=== PATIENT | female | born 1930 | race Caucasian/White ===

== ENCOUNTER 2016-08-13 02:16 | Inpatient (IN) | payer MEDICARE ==
[2016-08-13 03:01] LABS: Basophils % (A) 0 %; CH 30.4; CHCM 32.1; Eosinophils % (A) 0 %; HCT 43.5 % (34.0-46.0); HDW 2.53; HGB 13.7 gm/dL (11.4-16.0); Luc # (Auto) 0.08; Luc % (Auto) 1; Lymphocytes # (A) 1.1 k/uL (1.0-4.8); Lymphocytes % (A) 12 %; MCHC 31.4 g/dL (31.0-37.0); MCV 95.4 fL (80.0-100.0); Mean Platelet Volume 8.9; Monocytes # (A) 0.4 k/uL (0-1.0); Monocytes % (A) 4 %; Neutrophils # (A) 7.2 k/uL (1.3-7.7); Neutrophils % (A) 82 %; RBC 4.56 m/uL (3.80-5.40); WBC 8.8 k/uL (3.8-10.6); WBC (Perox) 8.68
[2016-08-13] MEDS ORDERED: DILTIAZEM 125 MG in SODIUM CHLORIDE 0.9% 100 ML IV ONE (03:03)
[2016-08-13] MEDS ORDERED: DILTIAZEM 5 MG/ML 5 ML VIAL IVP STA ×2 (03:03→04:34)
[2016-08-13] MEDS ORDERED: ONDANSETRON 4 MG/2 ML VIAL IVP STA (03:05)
[2016-08-13 03:18] LABS: Calcium 10.2 mg/dL (8.4-10.2); Magnesium 1.5 mg/dL (1.6-2.3); Potassium 3.5 mmol/L (3.5-5.1); Total Bilirubin 1.1 mg/dL (0.2-1.3); Total Protein 7.2 g/dL (6.3-8.2)
[2016-08-13 03:25] LABS: INR 1.4 (<1.1); Partial Thromboplastin Time 23.5 sec (22.0-30.0); Prothrombin Time 13.5 sec (9.0-12.0)
[2016-08-13 03:33] LABS: Creatine Kinase MB 1.7 ng/mL (0.0-2.4)
[2016-08-13 03:34] LABS: Troponin I 0.079 ng/mL (0.000-0.034)
--- NOTE | 2016-08-13 03:42 | XR ---
EXAMINATION TYPE: XR chest 2V DATE OF EXAM: 08/13/2016 3:11 AM COMPARISON: None. HISTORY: Dysrhythmia, irregular heart rate TECHNIQUE: Frontal and lateral views of the chest are obtained. FINDINGS: There is mild pulmonary vascular congestion. Mild chronic interstitial lung changes are suggested evelia aterally. No definite focal pneumonia pneumothorax or pleural effusion is noted. There is mild cardio megaly and atherosclerotic calcification in the aortic arch and prosthetic cardiac valve in place. Mild degenerative changes and a dextroscoliosis is present in the thoracic spine with mild old wedge compression deformities. There is possibility of left mastectomy. IMPRESSION: 1. Chronic lung changes. 2. Mild pulmonary vascular congestion. 3. No focal pneumonia.
--- NOTE | 2016-08-13 03:53 | ED ---
Arrhythmia/Palpitations HPI - General Chief Complaint: Arrhythmia/Palpitations Stated Complaint: Rapid heart rate Time Seen by Provider: 08/13/16 02:46 Source: patient, RN notes reviewed Mode of arrival: wheelchair Limitations: no limitations - History of Present Illness Initial Comments: This patient is an 86-year-old woman who presents to be evaluated for a racing heartbeat, as well as nausea and vomiting. The patient states that she recently changed from taking oral clonidine to using clonidine patch. Following day she started to not feel well. She states that this was on Saturday, and she has a difficult time quantifying exactly what she was experiencing on Saturday. Starting this morning, she noted that her heart was racing, she was feeling generalized weakness and fatigue, and then tonight she was feeling very short of breath and also having nausea and vomiting. MD Complaint: rapid heart beat -: hour(s) Context: occurred during rest, change in medication Associated Symptoms: shortness of breath, nausea/vomiting, anxiety - Related Data Home Medications Medication Instructions Recorded Confirmed Apixaban [Eliquis] 2.5 mg PO BID 08/13/16 08/13/16 Aspirin 81 mg PO DAILY 08/13/16 08/13/16 Atorvastatin Calcium [Lipitor] 20 mg PO DAILY 08/13/16 08/13/16 Calcium Carbonate [Calcium] 600 mg PO BID 08/13/16 08/13/16 Fenofibrate 160 mg PO DAILY 08/13/16 08/13/16 Gabapentin [Neurontin] 200 mg PO BID 08/13/16 08/13/16 Losartan/Hydrochlorothiazide 1 each PO DAILY 08/13/16 08/13/16 [Hyzaar 100-25 Tablet] Metoprolol Succinate [Toprol XL] 25 mg PO DAILY 08/13/16 08/13/16 Montelukast [Singulair] 10 mg PO DAILY 08/13/16 08/13/16 Multivitamins, Thera [Multivitamin] 1 tab PO DAILY 08/13/16 08/13/16 Repaglinide [Prandin] 1 mg PO AC-BID 08/13/16 08/13/16 Ubidecarenone [Co Q-10] 100 mg PO DAILY 08/13/16 08/13/16 cloNIDine 0.3 MG/24HR PATCH 1 each TRANSDERM Q7D 08/13/16 08/13/16 [Catapres-Tts 0.3MG Patch] metFORMIN HCL [Glucophage Xr] 500 mg PO DAILY 08/13/16 08/13/16 Allergies Allergy/AdvReac Type Severity Reaction Status Date / Time tetracycline Allergy Rapid Verified 08/13/16 02:57 Heart Rate Review of Systems ROS Statement: Those systems with pertinent positive or pertinent negative responses have been documented in the HPI. ROS Other: All systems not noted in ROS Statement are negative. Constitutional: Reports: weakness (Generalized). Denies: fever, chills Respiratory: Reports: dyspnea. Denies: cough, wheezes, hemoptysis Cardiovascular: Reports: chest pain, palpitations, dyspnea on exertion. Denies : orthopnea, edema, syncope Gastrointestinal: Reports: nausea, vomiting. Denies: abdominal pain, diarrhea, constipation Genitourinary: Denies: dysuria, hematuria Musculoskeletal: Denies: back pain Skin: Denies: rash Neurological: Denies: headache, weakness, numbness Past Medical History Past Medical History: Atrial Fibrillation, Cancer, Diabetes Mellitus, Hypertension, Mitral Valve Prolapse (MVP) History of Any Multi-Drug Resistant Organisms: None Reported Past Surgical History: Section, Cholecystectomy, Hysterectomy Additional Past Surgical History / Comment(s): Left breast removal 1985 Past Psychological History: No Psychological Hx Reported Smoking Status: Former smoker Past Alcohol Use History: Rare Past Drug Use History: None Reported General Exam Limitations: no limitations General appearance: alert, in distress Head exam: Present: atraumatic, normocephalic Eye exam: Present: normal appearance. Absent: scleral icterus, conjunctival injection ENT exam: Present: mucous membranes dry Neck exam: Present: normal inspection Respiratory exam: Present: normal lung sounds bilaterally, respiratory distress (Mild tachypnea). Absent: wheezes, rales, rhonchi, stridor Cardiovascular Exam: Present: tachycardia, irregular rhythm, systolic murmur ( Grade 1/6 systolic ejection murmur). Absent: diastolic murmur, rubs, gallop GI/Abdominal exam: Present: soft. Absent: distended, tenderness, guarding, rebound Extremities exam: Present: normal inspection, normal capillary refill. Absent: pedal edema, calf tenderness Back exam: Present: normal inspection. Absent: CVA tenderness (R), CVA tenderness (L) Neurological exam: Present: alert Skin exam: Present: warm, dry, intact, normal color. Absent: rash, cyanosis, diaphoretic, erythema, petechiae, pallor, mottled Course Vital Signs 08/13/16 08/13/16 08/13/16 02:22 02:54 03:23 Temperature 96.7 F L 97.8 F Pulse Rate 135 H 108 H Pulse Rate [ 135 H Lining Stitcher ] Respiratory 22 20 Rate Blood Pressure 139/104 165/86 O2 Sat by Pulse 98 97 Oximetry 08/13/16 08/13/16 04:35 05:26 Temperature Pulse Rate 117 H 102 H Pulse Rate [ L[place] Stitcher ] Respiratory 22 18 Rate Blood Pressure 148/91 130/82 O2 Sat by Pulse 97 98 Oximetry EKG Findings - EKG Results: EKG: interpreted by ERMD EKG shows: atrial fibrillation (Rate approximately 145 bpm) - Blocks, [place], Hypertrophy, ST Abn: Chamber hypertrophy or enlargement: only voltage criteria for left ventricular hypertrophy Repolarization changes or abnormalities: ST suggestive of injury (ST depressions in V4 to V6 concerning for subendocardial injury in the lateral leads.) Medical Decision Making - Medical Decision Making Patient is an 86-year-old woman presenting with atrial fibrillation and rapid ventricular rate. Patient started on Cardizem bolus and drip. Patient was reevaluated and number of times and the heart rate does continue to improve. The patient's nausea and vomiting has resolved. She is feeling much better following medications. Patient be admitted for serial cardiac enzymes and cardiology consultation. - Lab Data Result diagrams: 08/13/16 02:48 08/13/16 02:48 Lab Results 08/13/16 08/13/16 08/13/16 Range/Units 02:48 02:48 02:48 WBC 8.8 (3.8-10.6) k/uL RBC 4.56 (3.80-5.40) m/uL Hgb 13.7 (11.4-16.0) gm/dL Hct 43.5 (34.0-46.0) % MCV 95.4 (80.0-100.0) fL MCH 30.0 (25.0-35.0) pg MCHC 31.4 (31.0-37.0) g/dL RDW 14.0 (11.5-15.5) % Plt Count 199 (150-450) k/uL Neutrophils % 82 % Lymphocytes % 12 % Monocytes % 4 % Eosinophils % 0 % Basophils % 0 % Neutrophils # 7.2 (1.3-7.7) k/uL Lymphocytes # 1.1 (1.0-4.8) k/uL Monocytes # 0.4 (0-1.0) k/uL Eosinophils # 0.0 (0-0.7) k/uL Basophils # 0.0 (0-0.2) k/uL PT (9.0-12.0) sec INR (<1.1) APTT (22.0-30.0) sec D-Dimer (<0.60) mg/L FEU Sodium 141 (137-145) mmol/L Potassium 3.5 (3.5-5.1) mmol/L Chloride 99 (98-107) mmol/L Carbon Dioxide 20 L (22-30) mmol/L Anion Gap 22 mmol/L BUN 26 H (7-17) mg/dL Creatinine 1.10 H (0.52-1.04) mg/dL Est GFR (MDRD) Af Amer 57 (>60 ml/min/1.73 sqM) Est GFR (MDRD) Non-Af 47 (>60 ml/min/1.73 sqM) Glucose 302 H (74-99) mg/dL Calcium 10.2 (8.4-10.2) mg/dL Magnesium 1.5 L (1.6-2.3) mg/dL Total Bilirubin 1.1 (0.2-1.3) mg/dL AST 71 H (14-36) U/L ALT 46 (9-52) U/L Alkaline Phosphatase 43 (38-126) U/L Total Creatine Kinase 79 (30-135) U/L CK-MB (CK-2) 1.7 (0.0-2.4) ng/mL CK-MB (CK-2) Rel Index 2.2 Troponin I 0.079 H* (0.000-0.034) ng/mL Total Protein 7.2 (6.3-8.2) g/dL Albumin 4.2 (3.5-5.0) g/dL 08/13/16 Range/Units 02:48 WBC (3.8-10.6) k/uL RBC (3.80-5.40) m/uL Hgb (11.4-16.0) gm/dL Hct (34.0-46.0) % MCV (80.0-100.0) fL MCH (25.0-35.0) pg MCHC (31.0-37.0) g/dL RDW (11.5-15.5) % Plt Count (150-450) k/uL Neutrophils % % Lymphocytes % % Monocytes % % Eosinophils % % Basophils % % Neutrophils # (1.3-7.7) k/uL Lymphocytes # (1.0-4.8) k/uL Monocytes # (0-1.0) k/uL Eosinophils # (0-0.7) k/uL Basophils # (0-0.2) k/uL PT 13.5 H (9.0-12.0) sec INR 1.4 (<1.1) APTT 23.5 (22.0-30.0) sec D-Dimer 0.23 (<0.60) mg/L FEU Sodium (137-145) mmol/L Potassium (3.5-5.1) mmol/L Chloride (98-107) mmol/L Carbon Dioxide (22-30) mmol/L Anion Gap mmol/L BUN (7-17) mg/dL Creatinine (0.52-1.04) mg/dL Est GFR (MDRD) Af Amer (>60 ml/min/1.73 sqM) Est GFR (MDRD) Non-Af (>60 ml/min/1.73 sqM) Glucose (74-99) mg/dL Calcium (8.4-10.2) mg/dL Magnesium (1.6-2.3) mg/dL Total Bilirubin (0.2-1.3) mg/dL AST (14-36) U/L ALT (9-52) U/L Alkaline Phosphatase (38-126) U/L Total Creatine Kinase (30-135) U/L CK-MB (CK-2) (0.0-2.4) ng/mL CK-MB (CK-2) Rel Index Troponin I (0.000-0.034) ng/mL Total Protein (6.3-8.2) g/dL Albumin (3.5-5.0) g/dL Critical Care Time Critical Care Time: Yes (40 minutes.) Disposition Clinical Impression: Atrial fibrillation, Hyperglycemia, Hypomagnesemia, Elevated troponin Disposition: ADMITTED IP TO THIS HOSP Condition: Fair
[2016-08-13] MEDS ORDERED: INSULIN REGULAR 100 UNIT/ML VIAL SQ STA (05:11)
[2016-08-13] MEDS ORDERED: ENOXAPARIN 40 MG/0.4 ML SYRINGE SQ STA (05:12)
[2016-08-13] MEDS ORDERED: NITROGLYCERIN SL TABS 0.4 MG TAB SUBLINGUAL PRN (05:12)
[2016-08-13] MEDS ORDERED: MAGNESIUM SULFATE-D5W PMX 1 GM in DEXTROSE/WATER 1 100ML.BAG IVPB ONE (05:17)
[2016-08-13 06:46] LABS: Glucose,Whole Blood 279 mg/dL (75-99)
[2016-08-13] MEDS ORDERED: METOPROLOL SUCCINATE (ER) 25 MG TAB.ER.24H PO SCH (09:00)
[2016-08-13] MEDS: GABAPENTIN 100 MG CAP PO SCH ×2 (09:00→21:39)
[2016-08-13] MEDS: APIXABAN 2.5 MG TABLET PO SCH ×2 (09:01→21:40)
[2016-08-13] MEDS: FENOFIBRATE 160 MG TAB PO SCH (09:01)
[2016-08-13 09:03] LABS: Creatine Kinase MB 1.8 ng/mL (0.0-2.4)
[2016-08-13] MEDS: MONTELUKAST 10 MG TAB PO SCH (09:03)
[2016-08-13 09:04] LABS: Troponin I 0.102 ng/mL (0.000-0.034)
[2016-08-13] MEDS: metFORMIN 500 MG TAB PO SCH ×2 (09:45→18:13)
[2016-08-13] MEDS: REPAGLINIDE 1 MG TAB PO SCH ×2 (09:45→18:14)
[2016-08-13] MEDS: CALCIUM CARBONATE 500 MG CHEWABLE PO SCH ×2 (09:45→21:39)
[2016-08-13 09:57] LABS: Glucose,Whole Blood 269 mg/dL (75-99)
[2016-08-13] MEDS: LOSARTAN-HCTZ 50-12.5 MG 1 EACH TAB PO SCH (10:01)
[2016-08-13] MEDS: INSULIN LISPRO (humaLOG) 300 UNIT/3 ML VIAL SQ SCH ×4 (10:03→21:38)
[2016-08-13] MEDS ORDERED: METOPROLOL TARTRATE 25 MG TAB PO SCH (12:30)
[2016-08-13 12:53] LABS: Glucose,Whole Blood 185 mg/dL (75-99)
[2016-08-13] MEDS: LEVOTHYROXINE 100 MCG TAB PO SCH (14:14)
[2016-08-13] MEDS: MAGNESIUM OXIDE 400 MG TAB PO SCH (14:14)
[2016-08-13] MEDS: ATORVASTATIN 20 MG TAB PO SCH (14:14)
[2016-08-13] MEDS: METOPROLOL TARTRATE 50 MG TAB PO SCH ×2 (14:14→21:39)
[2016-08-13] MEDS: MULTIVITAMINS, THERA 1 EACH TAB PO SCH (14:14)
--- NOTE | 2016-08-13 14:48 | CONS ---
DATE OF CONSULTATION: This is an 86-year-old female who switch from oral clonidine 0.3 mg 3 times a day to the TTS-3 patch and has not been able to sleep well. She has been experiencing palpitations. When she came into the emergency room, she also had a dull sensation of heaviness in her chest. When she came to the emergency room, she was found to be in atrial fibrillation with RVR. She has known atrial fibrillation and she has not been able to tolerate amiodarone in the past. Her first 12-lead ECG showed atrial fibrillation with a heart rate of 145 beats a minute with ST depressions in the lateral precordial leads. The following ECG at 160 beats per minute also shows ST depressions in the lateral precordial leads. She has prominent atrial fibrillation. Apparently was rate controlled per Dr. Espinoza's note from June 2016. Her medication list includes aspirin, Catapres patch TTS3, Coenzyme Q10, Eliquis 2.5 mg twice daily fenofibrate, Hyzaar 100-25 mg p.o. daily, Lipitor 20 mg daily, metformin, metoprolol succinate ER 25 mg daily, Singulair, Synthroid. REVIEW OF SYSTEMS: No fever, chills, rigors. No cough or expectoration. No nausea, vomiting, or diarrhea. No hematuria or dysuria. No strokes or seizures. No skin lesions or musculoskeletal complaints. Allergies to TETRACYCLINE and intolerance to AMIODARONE. AMIODARONE has been discontinued. On examination, her resting heart rate is about 100 beats a minute. Blood pressure is 151/72 mmHg, she is afebrile. Head and neck examination is normal. Heart sounds are irregular, but normal. No murmurs or gallops. Breath sounds are normal. No rhonchi. No crackles. Abdomen is soft, nontender. Extremities are warm. No edema Labs are reviewed. White count is 8.8. Hemoglobin is 43.5. Chemistry was reviewed. Sodium is normal. Potassium 3.5, BUN is 26, creatinine is 1.1. GFR is 47. Glucose is elevated. She is diabetic, troponin 0.079 and 0.1. She had a stress test in 2014 which was normal. IMPRESSION: 1. An 86-year-old female presenting with atrial fibrillation with rapid ventricular rate. Apparently she has no atrial fibrillation. There is a change from oral to transdural Catapres. 2. Diabetes adult-onset on metformin, hypertension, dyslipidemia. Blood pressure is elevated. Abnormal cardiac enzymes with borderline abnormal troponins with ST depression during atrial fibrillation, likely related to demand ischemia. SUGGEST: 1. Rate controlled with metoprolol. She is on 100 mg twice daily of metoprolol. 2. Continue antihypertensive therapy. She on clonidine at this time and she has been intolerant of AMIODARONE in the past. I would suggest continuing anticoagulation with apixaban 2.5 mg twice daily, continuing IV Cardizem for now but discontinue it once the heart rates are better controlled on the higher dose of metoprolol. She takes a small dose at home of 25 mg daily, succinate, she has been prescribed 100 mg twice daily p.o. I will also check her TSH level. 3. Plan is rate control of atrial fibrillation. Continue anticoagulation and blood pressure control and checking TSH.
[2016-08-13 18:00] LABS: Creatine Kinase MB 1.4 ng/mL (0.0-2.4)
[2016-08-13 18:04] LABS: Troponin I 0.123 ng/mL (0.000-0.034)
[2016-08-13] MEDS: DILTIAZEM 125 MG in SODIUM CHLORIDE 0.9% 100 ML IV SCH (18:11)
[2016-08-13 18:12] LABS: Glucose,Whole Blood 172 mg/dL (75-99)
--- NOTE | 2016-08-13 18:14 | HP ---
DATE OF ADMISSION: 08/13/2016 PRESENTING COMPLAINT: Heart racing. History of presenting complaint: A very pleasant 86-year-old Patient of Dr. Marquez. The patient's chronic stable conditions include diabetes, hypertension, hypothyroid, mitral valve prolapse, the patient also has got peripheral neuropathy. 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 The following day the patient started having some nausea, felt dizzy, heart started racing. Found to be in A. fib with rapid ventricular rate, put on IV Cardizem in the ER, the patient does not remember being in atrial fibrillation in the past. PAST MEDICAL HISTORY: Also developed some chest discomfort. Patient's at the bedside. No prior cardiac history she states. REVIEW OF SYSTEMS: CONSTITUTIONAL: Tired. HEENT: Decreased hearing. RESPIRATORY: Slight short of breath. CARDIOVASCULAR: As above. GASTROINTESTINAL: None. GENITOURINARY: None. MUSCULOSKELETAL: None. Dermatological: None. HEMATOLOGICAL: None. LYMPHATIC: None. PSYCHIATRY: ( ). NEUROLOGICAL: Some numbness and tingling in the feet. Past medical history, diabetes mellitus type 2, hypertension, mitral prolapse, hypothyroid. PAST SURGICAL HISTORY: , cholecystectomy, hysterectomy, left breast removal 1985. SOCIAL HISTORY: Does not smoke. , homemaker. FAMILY HISTORY: Reviewed; noncontributory to presentation. HOME MEDICATIONS: 1. Glucophage XL 500 mg p.o. daily. 2. Catapres 0.2 mg started on Saturday. 3. CoQ10 100 mg p.o. daily. 4. Prandin 1 mg p.o. b.i.d. 5. Multivitamin 1 tablet p.o. daily. 6. Singulair 10 mg p.o. daily. 7. Toprol-XL 25 mg p.o. daily. 8. Hyzaar 100/25 1 tablets p.o. daily. 9. Synthroid 100 mcg p.o. daily. 10. Neurontin 200 mg p.o. b.i.d. 11. TriCor 160 mg p.o. daily. 12. Calcium 600 mg p.o. b.i.d. 13. Lipitor 20 mg p.o. daily. 14. Aspirin 81 mg p.o. daily. 15. Eliquis 2.5 p.o. b.i.d. ALLERGIES TO TETRACYCLINE. On examination vital signs on presentation: Temperature 96.7, pulse 135, respirations 22, blood pressure 139/104, pulse ox 98% on room air. GENERAL APPEARANCE: Average build, lying in bed, not in distress. EYES: Pupils equal. Conjunctivae normal. HEENT: External appearance of nose and ears normal. Oral cavity normal. NECK: JVD not raised. Mass not palpable. RESPIRATORY: Effort increased. LUNGS: Slightly decreased breath sounds. CARDIOVASCULAR: Heart sounds irregular. No edema. ABDOMEN: Soft, nontender. Liver and spleen is not palpable. LYMPHATIC: No lymph nodes palpable in the neck and axilla. PSYCHIATRY: Alert and oriented x3. Mood and affect normal. NEUROLOGICAL: Pupils equal. Cranial nerves grossly intact. Power and sensation grossly intact. MUSCULOSKELETAL: Evidence of osteoarthritis of multiple joints including especially the hands and knees. INVESTIGATIONS: White count 8.8, hemoglobin 13.7. Potassium 3.5. BUN 26, creatinine 1.10, glucose 302, 279, troponin 0.079, 0.102, EKG atrial fibrillation, ST segment some depression in the inferolateral leads, premature ventricular contractions. ASSESSMENT: 1. New onset atrial fibrillation with rapid ventricular rate with some ischemic changes and the troponin leak this could be cardiac ischemia tachycardia, related to underlying cardiac ischemia been unmasked, patient definitely has multiple cardiac risk factors. 2. Diabetes mellitus type 2, chronically on oral hypoglycemic, uncontrolled. 3. Essential hypertension, uncontrolled. 4. Mitral valve prolapse. 5. Hypoparathyroidism. 6. 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 PLAN: The patient is started on IV Cardizem in the ER. Catapres patch has been taken off. We will increase patient's Lopressor to 100 mg twice a day starting now. Sugars are under control hence we will increase patient's Glucophage to 1000 mg twice a day. Care was discussed in detail with the patient and . Cardiology has been consulted for ( ). Patient is on Eliquis, it is possible that the patient chronically has atrial fibrillation. We will also check patient's thyroid levels in the morning. Copy to Dr. Marquez.
[2016-08-13 21:37] LABS: Glucose,Whole Blood 149 mg/dL (75-99)
[2016-08-14] MEDS: INSULIN LISPRO (humaLOG) 300 UNIT/3 ML VIAL SQ SCH ×4 (07:07→23:34)
[2016-08-14] MEDS: REPAGLINIDE 1 MG TAB PO SCH ×2 (07:12→17:08)
[2016-08-14] MEDS: metFORMIN 500 MG TAB PO SCH ×2 (07:12→17:08)
[2016-08-14] MEDS: LEVOTHYROXINE 100 MCG TAB PO SCH (07:13)
[2016-08-14] MEDS: DILTIAZEM 125 MG in SODIUM CHLORIDE 0.9% 100 ML IV SCH ×2 (07:14→17:13)
[2016-08-14] MEDS: APIXABAN 2.5 MG TABLET PO SCH ×2 (07:50→20:06)
[2016-08-14] MEDS: FENOFIBRATE 160 MG TAB PO SCH (07:50)
[2016-08-14] MEDS: CALCIUM CARBONATE 500 MG CHEWABLE PO SCH ×2 (07:51→23:33)
[2016-08-14] MEDS: GABAPENTIN 100 MG CAP PO SCH ×2 (07:51→20:06)
[2016-08-14] MEDS: ASPIRIN 81 MG CHEW PO SCH (07:51)
[2016-08-14] MEDS: ATORVASTATIN 20 MG TAB PO SCH (07:51)
[2016-08-14] MEDS: LOSARTAN-HCTZ 50-12.5 MG 1 EACH TAB PO SCH (07:51)
[2016-08-14] MEDS: MAGNESIUM OXIDE 400 MG TAB PO SCH (07:52)
[2016-08-14] MEDS: MONTELUKAST 10 MG TAB PO SCH (07:52)
[2016-08-14] MEDS: METOPROLOL TARTRATE 50 MG TAB PO SCH ×2 (07:52→20:09)
[2016-08-14] MEDS ORDERED: ASPIRIN 325 MG TAB PO SCH (09:00)
[2016-08-14] MEDS: MULTIVITAMINS, THERA 1 EACH TAB PO SCH (11:19)
[2016-08-14 11:54] LABS: Glucose,Whole Blood 258 mg/dL (75-99)
--- NOTE | 2016-08-14 15:25 | P.PN ---
Subjective Principal diagnosis: Atrial fibrillation This is an 86-year-old female admitted to the hospital with symptoms of palpitations and chest heaviness. On arrival to the emergency room she was found to be in atrial fibrillation with rapid ventricular response. Patient has had history of A. fib in the past, has been unable to tolerate amiodarone. Patient is currently on a Cardizem drip, heart rate in the 80s, blood pressure 154/80. Patient is on Eliquis for anticoagulation, also has history of hyperlipidemia, diabetes, hypertension, hypothyroidism. Patient is currently on Cardizem drip at 10 mg/h along with the metoprolol tartrate 100 mg by mouth twice a day. We will increase metoprolol tartrate 50 mg by mouth twice a day and wean off Cardizem drip. Objective - Vital Signs Vital signs: Vital Signs Temp 98.7 F 08/14/16 15:10 Pulse 78 08/14/16 15:10 Resp 17 08/14/16 15:10 BP 145/77 08/14/16 15:10 Pulse Ox 98 08/14/16 15:10 Intake & Output 08/13/16 08/14/16 08/14/16 18:59 06:59 18:59 Intake Total 80 445 80 Output Total 300 250 Balance -220 195 80 Weight 49.3 kg 49.3 kg Intake: Intake, IV Titration 80 205 80 Amount Diltiazem 125 mg In 80 80 Sodium Chloride 0.9% 100 ml @ 10 MG/HR 10 mls/hr IV .[id number] ONE Rx#: [id number] Diltiazem 125 mg In 205 Sodium Chloride 0.9% 100 ml @ 10 MG/HR 10 mls/hr IV .[id number] [facility] Rx#: [id number] Oral 240 Output: Urine 300 250 Other: Voiding Method Toilet Toilet # Voids 2 1 - Exam PHYSICAL EXAMINATION: HEENT: Head is atraumatic, normocephalic. Pupils equal, round. Neck is supple. There is no elevated jugular venous pressure. HEART EXAMINATION: S1 and S2 irregular irregular a systolic murmur is heard CHEST EXAMINATION: Lungs are clear to auscultation and precussion. No chest wall tenderness is noted on palpation or with deep breathing. ABDOMEN: Soft, nontender. Bowel sounds are heard. No organomegaly noted. EXTREMITIES: 2+ peripheral pulses with no evidence of peripheral edema and no calf tenderness noted. NEUROLOGIC patient is awake, alert and oriented -3. . - Labs CBC & Chem 7: 08/13/16 02:48 08/13/16 02:48 Labs: Abnormal Lab Results - Last 24 Hours (Table) 08/13/16 08/13/16 08/13/16 Range/Units 16:49 18:09 21:35 POC Glucose (mg/dL) 172 H 149 H (75-99) mg/dL Troponin I 0.123 H* (0.000-0.034) ng/mL HDL Cholesterol (40-60) mg/dL TSH (0.465-4.680) mIU/L Free T4 (0.78-2.19) ng/dL 08/14/16 08/14/16 Range/Units 06:01 11:52 POC Glucose (mg/dL) 258 H (75-99) mg/dL Troponin I (0.000-0.034) ng/mL HDL Cholesterol 38 L (40-60) mg/dL TSH 0.044 L (0.465-4.680) mIU/L Free T4 2.40 H (0.78-2.19) ng/dL Assessment and Plan (1) Chronic a-fib Status: Acute (2) HTN (hypertension) Status: Acute (3) Hyperlipemia Status: Acute (4) Diabetes Status: Acute (5) Hypothyroid Status: Acute Plan: Cardiology standpoint, we'll increase the dose of beta kemar to 150 mg by mouth twice a day discontinue IV Cardizem. DNP note has been reviewed, I agree with a documented findings and plan of care. Patient was seen and examined.
[2016-08-14 17:10] LABS: Glucose,Whole Blood 125 mg/dL (75-99)
--- NOTE | 2016-08-14 19:50 | PN ---
DATE OF SERVICE: 08/14/2016 PRESENTING COMPLAINT: Heart racing. INTERVAL HISTORY: This patient presented with atrial fibrillation, but controlled. Patient's dose of beta kemar has been increased. Heart rate is better controlled. Patient feels better though tired. at the bedside. Did tolerate a meal. Review of systems done for constitutional, cardiovascular, GI, pulmonary; relevant findings as above. Current medications include Lopressor 100 mg b.i.d. On examination, temperature 98.7, pulse 78, respiration 17, blood pressure 145/77, pulse ox 98% on room air. GENERAL APPEARANCE: Lying in bed, not in distress. EYES: Pupils equal. Conjunctivae normal. NECK: JVD not raised. Mass not palpable. RESPIRATORY: Effort normal. LUNGS: Slightly decreased breath sounds. HEART: Heart sounds irregular. No edema. ABDOMEN: Soft, nontender. Liver and spleen not palpable. PSYCHIATRY: Alert and oriented x3. Mood and affect normal. INVESTIGATIONS: Free T4 2.4. TSH 0.44. Troponin 0.079, 0.102. Accu-Cheks are noted. ASSESSMENT: 1. Atrial fibrillation with rapid ventricular rate, somewhat better controlled now; possible contribution from over-replaced Synthroid. 2. Diabetes mellitus, type 2, chronically on oral hypoglycemic. 3. Essential hypertension. 4. Mitral valve prolapse. 5. Diabetes mellitus, type 2, causing peripheral neuropathy. 6. 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 PLAN: Per Cardiology, will increase beta kemar to 150 mg twice a day and discontinue the IV Cardizem drip. Will also cut back on the dose of Synthroid, taking it down to 50. Care was discussed with the patient and her at the bedside.
[2016-08-14 20:56] LABS: Glucose,Whole Blood 152 mg/dL (75-99)
[2016-08-15 06:08] LABS: Glucose,Whole Blood 124 mg/dL (75-99)
[2016-08-15] MEDS: INSULIN LISPRO (humaLOG) 300 UNIT/3 ML VIAL SQ SCH ×4 (06:47→21:38)
[2016-08-15] MEDS: metFORMIN 500 MG TAB PO SCH ×2 (06:47→17:23)
[2016-08-15] MEDS: REPAGLINIDE 1 MG TAB PO SCH ×2 (06:48→17:20)
[2016-08-15] MEDS: ASPIRIN 81 MG CHEW PO SCH (11:04)
[2016-08-15] MEDS: CALCIUM CARBONATE 500 MG CHEWABLE PO SCH ×2 (11:05→21:34)
[2016-08-15] MEDS: ATORVASTATIN 20 MG TAB PO SCH (11:05)
[2016-08-15] MEDS: APIXABAN 2.5 MG TABLET PO SCH ×2 (11:05→21:34)
[2016-08-15] MEDS: GABAPENTIN 100 MG CAP PO SCH ×2 (11:05→21:34)
[2016-08-15] MEDS: FENOFIBRATE 160 MG TAB PO SCH (11:06)
[2016-08-15] MEDS: LOSARTAN-HCTZ 50-12.5 MG 1 EACH TAB PO SCH (11:06)
[2016-08-15] MEDS: MONTELUKAST 10 MG TAB PO SCH (11:07)
[2016-08-15] MEDS: METOPROLOL TARTRATE 50 MG TAB PO SCH ×2 (11:07→21:34)
[2016-08-15] MEDS: MAGNESIUM OXIDE 400 MG TAB PO SCH (11:08)
[2016-08-15] MEDS: MULTIVITAMINS, THERA 1 EACH TAB PO SCH (11:08)
[2016-08-15 12:07] LABS: Glucose,Whole Blood 232 mg/dL (75-99)
--- NOTE | 2016-08-15 15:57 | P.PN ---
Subjective Principal diagnosis: Atrial fibrillation This is an 86-year-old female admitted to the hospital with symptoms of palpitations and chest heaviness. On arrival to the emergency room she was found to be in atrial fibrillation with rapid ventricular response. Patient has had history of A. fib in the past, has been unable to tolerate amiodarone. Patient is currently on metoprolol tartrate 150 mg by mouth twice a day. Heart rate 90, blood pressure 150/70. Objective - Vital Signs Vital signs: Vital Signs Temp 97.7 F 08/15/16 08:00 Pulse 98 08/15/16 12:00 Resp 16 08/15/16 12:00 BP 155/73 08/15/16 12:00 Pulse Ox 95 08/15/16 12:00 Intake & Output 08/14/16 08/15/16 08/15/16 18:59 06:59 18:59 Intake Total 320 120 Output Total 200 500 Balance 320 -200 -380 Weight 49.3 kg 50 kg Intake: Intake, IV Titration 80 Amount Diltiazem 125 mg In 80 Sodium Chloride 0.9% 100 ml @ 10 MG/HR 10 mls/hr IV .[id number] ONE Rx#: [id number] Oral 240 120 Output: Urine 200 500 Other: Voiding Method Toilet Toilet Toilet # Voids 1 1 - Exam PHYSICAL EXAMINATION: HEENT: Head is atraumatic, normocephalic. Pupils equal, round. Neck is supple. There is no elevated jugular venous pressure. HEART EXAMINATION: S1 and S2 irregular irregular a systolic murmur is heard CHEST EXAMINATION: Lungs are clear to auscultation and precussion. No chest wall tenderness is noted on palpation or with deep breathing. ABDOMEN: Soft, nontender. Bowel sounds are heard. No organomegaly noted. EXTREMITIES: 2+ peripheral pulses with no evidence of peripheral edema and no calf tenderness noted. NEUROLOGIC patient is awake, alert and oriented -3. . - Labs CBC & Chem 7: 08/13/16 02:48 08/13/16 02:48 Labs: Abnormal Lab Results - Last 24 Hours (Table) 08/14/16 08/14/16 08/15/16 Range/Units 17:02 20:55 06:06 POC Glucose (mg/dL) 125 H 152 H 124 H (75-99) mg/dL 01/25/17 Range/Units 11:51 POC Glucose (mg/dL) 232 H (75-99) mg/dL Assessment and Plan (1) Chronic a-fib Status: Acute (2) HTN (hypertension) Status: Acute (3) Hyperlipemia Status: Acute (4) Diabetes Status: Acute (5) Hypothyroid Status: Acute Plan: Cardiology standpoint, we'll recommend to continue the patient on her current medications. Increase activity as tolerated plan for possible discharge home in the morning if stable. DNP note has been reviewed, I agree with a documented findings and plan of care. Patient was seen and examined.
[2016-08-15 16:54] LABS: Glucose,Whole Blood 175 mg/dL (75-99)
[2016-08-15 20:51] LABS: Glucose,Whole Blood 168 mg/dL (75-99)
[2016-08-16 05:58] LABS: Glucose,Whole Blood 81 mg/dL (75-99)
[2016-08-16] MEDS ORDERED: LEVOTHYROXINE 50 MCG TAB PO SCH (06:30)
[2016-08-16] MEDS: INSULIN LISPRO (humaLOG) 300 UNIT/3 ML VIAL SQ SCH ×2 (06:45→12:05)
[2016-08-16] MEDS: metFORMIN 500 MG TAB PO SCH (06:49)
[2016-08-16] MEDS: REPAGLINIDE 1 MG TAB PO SCH (07:04)
[2016-08-16 08:18] VITALS: RESP 20
[2016-08-16] MEDS: ATORVASTATIN 20 MG TAB PO SCH (08:21)
[2016-08-16] MEDS: CALCIUM CARBONATE 500 MG CHEWABLE PO SCH (08:21)
[2016-08-16] MEDS: METOPROLOL TARTRATE 50 MG TAB PO SCH (08:22)
[2016-08-16] MEDS: MAGNESIUM OXIDE 400 MG TAB PO SCH (08:22)
[2016-08-16] MEDS: GABAPENTIN 100 MG CAP PO SCH (08:22)
[2016-08-16] MEDS: APIXABAN 2.5 MG TABLET PO SCH (08:22)
[2016-08-16] MEDS: ASPIRIN 81 MG CHEW PO SCH (08:22)
[2016-08-16] MEDS: FENOFIBRATE 160 MG TAB PO SCH (08:22)
[2016-08-16] MEDS: MONTELUKAST 10 MG TAB PO SCH (08:23)
[2016-08-16 11:36] VITALS: BP 130/79; PULSE 87; TEMP 97
[2016-08-16 12:01] LABS: Glucose,Whole Blood 86 mg/dL (75-99)
[2016-08-16] MEDS: MULTIVITAMINS, THERA 1 EACH TAB PO SCH (12:06)
[2016-08-16] MEDS: LOSARTAN-HCTZ 50-12.5 MG 1 EACH TAB PO SCH (12:06)
[2016-08-16 12:51] VITALS: BMI 19.7
--- NOTE | 2016-08-16 14:27 | PN ---
DATE OF SERVICE: 08/15/16. PRESENTING COMPLAINT: Tired. INTERVAL HISTORY: This patient was seen by me yesterday morning on 08/15/16, was in A fib. The patent's A fib is much better controlled. Patient also found to be over replaced with Synthroid. Her dose was cut back. Patient is feeling better, is at bedside, tolerating a diet. Review of systems, ( ) , cardiovascular, GI, pulmonary; relevant findings as above. Current medications are reviewed that include Lopressor 150 b.i.d. and her dose of Synthroid cut back to 50 mcg p.o. daily. On examination, temperature 97.7, pulse 98, respiration 16, blood pressure 155/73, pulse ox 95% on room air. GENERAL APPEARANCE: Sitting up, comfortable. EYES: Pupils equal. Conjunctivae normal. NECK: JVD not raised. Mass not whether palpable. RESPIRATORY: Effort normal. Lungs are clear. CARDIOVASCULAR: First and second sounds normal. No edema. ABDOMEN: Soft, nontender. Liver and spleen not palpable. PSYCHIATRY: Alert and oriented x3. Mood and affect normal. CARDIOVASCULAR: Heart is regular. INVESTIGATIONS: Accu-Cheks are noted. ASSESSMENT: 1. Atrial fibrillation with rapid ventricular presentation: Now better controlled. Possible contribution over replaced with Synthroid. 2. Diabetes mellitus type 2, chronically on oral hyperglycemics. 3. Essential hypertension. 4. Mitral valve prolapse. 5. 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 6. 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 7. Hypothyroidism. PLAN: The patient clinically doing better, we will await input further input from cardiology. The patient states she is doing much better. Care was discussed with the patient and in detail .
--- NOTE | 2016-08-16 14:33 | P.PN ---
Subjective Principal diagnosis: Atrial fibrillation This is an 86-year-old female admitted to the hospital with symptoms of palpitations and chest heaviness. On arrival to the emergency room she was found to be in atrial fibrillation with rapid ventricular response. Patient has had history of A. fib in the past, has been unable to tolerate amiodarone. Patient is currently on metoprolol tartrate 150 mg by mouth twice a day. Heart rate 80- 90, blood pressure 130/78. Patient feels well overall, just complains of having decreased appetite. Objective - Vital Signs Vital signs: Vital Signs Temp 97 F L 08/16/16 11:35 Pulse 87 08/16/16 11:35 Resp 20 08/16/16 11:35 BP 130/79 08/16/16 11:35 Pulse Ox 98 08/16/16 11:35 Intake & Output 08/15/16 08/16/16 08/16/16 18:59 06:59 18:59 Intake Total 120 360 Output Total 500 300 Balance -380 60 Weight 50.5 kg 50.5 kg Intake: Oral 120 360 Output: Urine 500 300 Other: Voiding Method Toilet Toilet Toilet # Voids 1 1 - Exam PHYSICAL EXAMINATION: HEENT: Head is atraumatic, normocephalic. Pupils equal, round. Neck is supple. There is no elevated jugular venous pressure. HEART EXAMINATION: S1 and S2 irregular irregular a systolic murmur is heard CHEST EXAMINATION: Lungs are clear to auscultation and precussion. No chest wall tenderness is noted on palpation or with deep breathing. ABDOMEN: Soft, nontender. Bowel sounds are heard. No organomegaly noted. EXTREMITIES: 2+ peripheral pulses with no evidence of peripheral edema and no calf tenderness noted. NEUROLOGIC patient is awake, alert and oriented -3. . - Labs CBC & Chem 7: 08/13/16 02:48 08/13/16 02:48 Labs: Abnormal Lab Results - Last 24 Hours (Table) 08/15/16 08/15/16 Range/Units 16:53 20:40 POC Glucose (mg/dL) 175 H 168 H (75-99) mg/dL Assessment and Plan (1) Chronic a-fib Status: Acute (2) HTN (hypertension) Status: Acute (3) Hyperlipemia Status: Acute (4) Diabetes Status: Acute (5) Hypothyroid Status: Acute Plan: Cardiology standpoint, we'll recommend to continue the patient on her current medications. She may be able to be discharged home from cardiology's perspective, a follow-up appointment will be made for her in the office to see Dr. Espinoza post discharge. DNP note has been reviewed, I agree with a documented findings and plan of care. Patient was seen and examined.
--- NOTE | 2016-08-17 09:09 | DS ---
DATE OF ADMISSION: 08/13/2016 DATE OF DISCHARGE: 08/16/2016 FINAL DIAGNOSES: 1. Persistent atrial fibrillation with rapid ventricular rate secondary to overreplacement with Synthroid. 2. Diabetes mellitus type 2, chronic, on oral hypoglycemics. 3. Essential hypertension. 4. Mitral valve prolapse. 5. 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 6. Hyperthyroidism from overreplacement. 7. Hypothyroidism, chronic. 8. Troponin leak secondary to arrhythmia. CONSULTATIONS: Dr. Johnson from Cardiology. HOSPITAL COURSE: This is a patient who is trying to use a Catapres patch instead of the pills. Presented with atrial fibrillation with rapid ventricular rate. Patient's dose of beta kemar was increased. Catapres was discontinued. Patient was found to be over replaced with Synthroid. Dose was cut back. On day of discharge, care was discussed in detail with the patient and . Patient was seen by Dr. Johnson from cardiology and tracy to be discharged. On examination, heart rate is irregular. LUNGS: Clear. DISCHARGE MEDICATIONS: 1. Aspirin discontinued. 2. Lipitor 20 mg a day. 3. Calcium 600 mg p.o. b.i.d. 4. TriCor 160 mg a day. 5. Neurontin 200 mg b.i.d. 6. Hyzaar 100/25, 1 tablet a day. 7. Singulair 10 mg a day. 8. Multivitamin 1 tablet a day. 9. Prandin 200 mg p.o. a.c. b.i.d. 10. CoQ10 100 mg p.o. daily. 11. Glucophage XL 500 mg p.o. daily. 12. Eliquis 2.5 p.o. b.i.d. 13. Synthroid 50 mcg p.o. daily. New dose. 14. Lopressor 150 mg p.o. b.i.d., new dose. 15. Catapres discontinued. Follow with Dr. Kidd on 08/17/2016, follow with Dr. Espinoza on 08/23/2016. Patient is to have a TSH done in 3 to [address] Kidd. Discharge planning more than 35 minutes.
== END 2016-08-16 15:03 | disposition home health service (06) | DRG 310 ==
LOC: EC 02:16 → 6SEL 05:29
PROVIDERS: ADMIT Hospitalist; ATTEND Hospitalist
DX: I48.2 Chronic atrial fibrillation (principal); E11.42 Type 2 diabetes mellitus with diabetic polyneuropathy; E11.65 Type 2 diabetes mellitus with hyperglycemia; I48.1 Persistent atrial fibrillation; E05.80 Other thyrotoxicosis without thyrotoxic crisis or storm; E03.9 Hypothyroidism, unspecified; T38.1X5A Adverse effect of thyroid hormones and substitutes, initial encounter; E78.5 Hyperlipidemia, unspecified; E83.42 Hypomagnesemia; F41.9 Anxiety disorder, unspecified; I10 Essential (primary) hypertension; I34.1 Nonrheumatic mitral (valve) prolapse; Z79.01 Long term (current) use of anticoagulants; Z79.82 Long term (current) use of aspirin; Z79.84 Long term (current) use of oral hypoglycemic drugs; Z79.899 Other long term (current) drug therapy; Z88.1 Allergy status to other antibiotic agents; Z87.891 Personal history of nicotine dependence; Z85.9 Personal history of malignant neoplasm, unspecified; Y92.009 Unspecified place in unspecified non-institutional (private) residence as the place of occurrence of the external cause
CPT/HCPCS: 36415; 71020; 80053; 80061; 82550; 82553; 83036; 83735; 84439; 84443; 84484; 85025; 85379; 85610; 85730; 93005; 99291

== ENCOUNTER 2016-09-02 18:13 | Inpatient (IN) | payer MEDICARE ==
[2016-09-02] MEDS ORDERED: SODIUM CHLORIDE 0.9% 1,000 ML IV STA (18:52)
--- NOTE | 2016-09-02 18:57 | ED ---
Weakness HPI - General Chief complaint: Weakness Stated complaint: weakness Time Seen by Provider: 09/02/16 18:40 Source: patient, family, RN notes reviewed, old records reviewed Mode of arrival: wheelchair Limitations: no limitations - History of Present Illness Initial comments: This is a 86-year-old female who was brought in with complaints of shortness of breath exertional dyspnea some hypotension today. She apparently was discharged from the hospital about 3 weeks ago for A. fib she still has atrial fibrillation she states she's not feeling better she has decreased oral intake. Shortness of breath no fevers chills or sweats. Her blood pressure at home was 90/50s she denies any chest pain she is also decreased urine output. MD Complaint: generalized weakness - Related Data Home Medications Medication Instructions Recorded Confirmed Aspirin 81 mg PO DAILY 08/13/16 09/02/16 Atorvastatin Calcium [Lipitor] 20 mg PO DAILY 08/13/16 09/02/16 Calcium Carbonate [Calcium] 600 mg PO BID 08/13/16 09/02/16 Fenofibrate 160 mg PO DAILY 08/13/16 09/02/16 Gabapentin [Neurontin] 200 mg PO BID 08/13/16 09/02/16 Losartan/Hydrochlorothiazide 1 tab PO DAILY 08/13/16 09/02/16 [Hyzaar 100-25 Tablet] Montelukast [Singulair] 10 mg PO DAILY 08/13/16 09/02/16 Multivitamins, Thera [Multivitamin] 1 tab PO DAILY 08/13/16 09/02/16 Repaglinide [Prandin] 1 mg PO AC-BID 08/13/16 09/02/16 Ubidecarenone [Co Q-10] 100 mg PO DAILY 08/13/16 09/02/16 metFORMIN HCL [Glucophage Xr] 500 mg PO DAILY 08/13/16 09/02/16 Metoprolol Tartrate [Lopressor] 100 mg PO BID 09/02/16 09/02/16 Previous Rx's Medication Instructions Recorded Apixaban [Eliquis] 2.5 mg PO BID #60 tablet 08/16/16 Levothyroxine Sodium [Synthroid] 50 mcg PO DAILY@0630 #30 tab 08/16/16 Allergies Allergy/AdvReac Type Severity Reaction Status Date / Time tetracycline Allergy Rapid Verified 09/02/16 19:11 Heart Rate Review of Systems ROS Statement: Those systems with pertinent positive or pertinent negative responses have been documented in the HPI. ROS Other: All systems not noted in ROS Statement are negative. 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 Past Anesthesia/Blood Transfusion Reactions: No Reported Reaction Past Psychological History: No Psychological Hx Reported Smoking Status: Former smoker Past Alcohol Use History: None Reported Additional Past Alcohol Use History / Comment(s): Pt states she started smoking in 1949 and quit in 1961. She ws a light smoker-2 packs a week. Past Drug Use History: None Reported - Past Family History Father History Unknown: Yes Mother History Unknown: Yes General Exam - General Exam Comments Initial Comments: This is a well-developed well-nourished awake alert oriented x3 female Limitations: no limitations General appearance: alert, in no apparent distress Head exam: Present: atraumatic, normocephalic, normal inspection Eye exam: Present: normal appearance, PERRL, EOMI. Absent: scleral icterus, conjunctival injection, periorbital swelling ENT exam: Present: mucous membranes dry Neck exam: Present: normal inspection. Absent: tenderness, meningismus, lymphadenopathy Respiratory exam: Present: normal lung sounds bilaterally. Absent: respiratory distress, wheezes, rales, rhonchi, stridor Cardiovascular Exam: Present: irregular rhythm GI/Abdominal exam: Present: soft, normal bowel sounds. Absent: distended, tenderness, guarding, rebound, rigid Extremities exam: Present: normal inspection, full ROM, normal capillary refill. Absent: tenderness, pedal edema, joint swelling, calf tenderness Back exam: Present: normal inspection Neurological exam: Present: alert, oriented X3, CN II-XII intact Psychiatric exam: Present: normal affect, normal mood Skin exam: Present: warm, dry, intact, normal color. Absent: rash Course Vital Signs 09/02/16 09/02/16 09/02/16 18:19 19:01 19:50 Temperature 98.9 F Pulse Rate 77 76 80 Respiratory 20 20 20 Rate Blood Pressure 108/65 108/63 124/81 O2 Sat by Pulse 96 98 99 Oximetry 09/02/16 09/02/16 20:32 21:36 Temperature Pulse Rate 85 77 Respiratory 18 18 Rate Blood Pressure 136/65 134/75 O2 Sat by Pulse 100 99 Oximetry EKG Findings - EKG Results: EKG: interpreted by ERMD EKG shows: atrial fibrillation (Atrial fibrillation rate of 87 QRS of 96 daily since QTC of 380/457 evidence of LVH nonspecific ST-T wave configuration.) Medical Decision Making - Medical Decision Making I did discuss findings with the patient family members. Patient will be admitted to discuss case with the hospitalist. Patient be admitted. Elevated lactic gases likely secondary to renal insufficiency and bilateral depletion. No infectious etiology is evident - Lab Data Result diagrams: 09/02/16 18:58 09/02/16 18:58 Lab Results 09/02/16 09/02/16 09/02/16 Range/Units 18:58 18:58 18:58 WBC (3.8-10.6) k/uL RBC (3.80-5.40) m/uL Hgb (11.4-16.0) gm/dL Hct (34.0-46.0) % MCV (80.0-100.0) fL MCH (25.0-35.0) pg MCHC (31.0-37.0) g/dL RDW (11.5-15.5) % Plt Count (150-450) k/uL Neutrophils % % Lymphocytes % % Monocytes % % Eosinophils % % Basophils % % Neutrophils # (1.3-7.7) k/uL Lymphocytes # (1.0-4.8) k/uL Monocytes # (0-1.0) k/uL Eosinophils # (0-0.7) k/uL Basophils # (0-0.2) k/uL Sodium 128 L (137-145) mmol/L Potassium 3.8 (3.5-5.1) mmol/L Chloride 91 L (98-107) mmol/L Carbon Dioxide 26 (22-30) mmol/L Anion Gap 11 mmol/L BUN 32 H (7-17) mg/dL Creatinine 1.21 H (0.52-1.04) mg/dL Est GFR (MDRD) Af Amer 51 (>60 ml/min/1.73 sqM) Est GFR (MDRD) Non-Af 42 (>60 ml/min/1.73 sqM) Glucose 42 L* (74-99) mg/dL POC Glucose (mg/dL) (75-99) mg/dL POC Glu Medical Office Coordinator ID Plasma Lactic Acid Octavio (0.7-2.0) mmol/L Calcium 9.7 (8.4-10.2) mg/dL Magnesium 1.4 L (1.6-2.3) mg/dL Total Bilirubin 0.7 (0.2-1.3) mg/dL AST 44 H (14-36) U/L ALT 42 (9-52) U/L Alkaline Phosphatase 32 L (38-126) U/L Total Creatine Kinase 59 (30-135) U/L CK-MB (CK-2) 1.7 (0.0-2.4) ng/mL CK-MB (CK-2) Rel Index 2.9 NT-Pro-B Natriuret Pep 4590 pg/mL Total Protein 5.9 L (6.3-8.2) g/dL Albumin 3.2 L (3.5-5.0) g/dL Amylase 63 (30-110) U/L Lipase 196 (23-300) U/L Urine Color Urine Appearance (Clear) Urine pH (5.0-8.0) Ur Specific [place] (1.001-1.035) Urine Protein (Negative) Urine Glucose (UA) (Negative) Urine Ketones (Negative) Urine Blood (Negative) Urine Nitrate (Negative) Urine Bilirubin (Negative) Urine Urobilinogen (<2.0) mg/dL Ur Leukocyte Esterase (Negative) Urine RBC (0-5) /hpf Urine WBC (0-5) /hpf Urine Bacteria (None) /hpf 09/02/16 09/02/16 09/02/16 Range/Units 18:58 18:58 20:16 WBC 7.7 (3.8-10.6) k/uL RBC 4.24 (3.80-5.40) m/uL Hgb 13.0 (11.4-16.0) gm/dL Hct 38.8 (34.0-46.0) % MCV 91.5 (80.0-100.0) fL MCH 30.5 (25.0-35.0) pg MCHC 33.4 (31.0-37.0) g/dL RDW 14.4 (11.5-15.5) % Plt Count 219 (150-450) k/uL Neutrophils % 62 % Lymphocytes % 27 % Monocytes % 8 % Eosinophils % 1 % Basophils % 0 % Neutrophils # 4.8 (1.3-7.7) k/uL Lymphocytes # 2.1 (1.0-4.8) k/uL Monocytes # 0.6 (0-1.0) k/uL Eosinophils # 0.1 (0-0.7) k/uL Basophils # 0.0 (0-0.2) k/uL Sodium (137-145) mmol/L Potassium (3.5-5.1) mmol/L Chloride (98-107) mmol/L Carbon Dioxide (22-30) mmol/L Anion Gap mmol/L BUN (7-17) mg/dL Creatinine (0.52-1.04) mg/dL Est GFR (MDRD) Af Amer (>60 ml/min/1.73 sqM) Est GFR (MDRD) Non-Af (>60 ml/min/1.73 sqM) Glucose (74-99) mg/dL POC Glucose (mg/dL) 190 H (75-99) mg/dL POC Glu Medical Office Coordinator ID Flower Luna Plasma Lactic Acid Octavio 2.5 H* (0.7-2.0) mmol/L Calcium (8.4-10.2) mg/dL Magnesium (1.6-2.3) mg/dL Total Bilirubin (0.2-1.3) mg/dL AST (14-36) U/L ALT (9-52) U/L Alkaline Phosphatase (38-126) U/L Total Creatine Kinase (30-135) U/L CK-MB (CK-2) (0.0-2.4) ng/mL CK-MB (CK-2) Rel Index NT-Pro-B Natriuret Pep pg/mL Total Protein (6.3-8.2) g/dL Albumin (3.5-5.0) g/dL Amylase (30-110) U/L Lipase (23-300) U/L Urine Color Urine Appearance (Clear) Urine pH (5.0-8.0) Ur Specific [place] (1.001-1.035) Urine Protein (Negative) Urine Glucose (UA) (Negative) Urine Ketones (Negative) Urine Blood (Negative) Urine Nitrate (Negative) Urine Bilirubin (Negative) Urine Urobilinogen (<2.0) mg/dL Ur Leukocyte Esterase (Negative) Urine RBC (0-5) /hpf Urine WBC (0-5) /hpf Urine Bacteria (None) /hpf 09/02/16 Range/Units 21:08 WBC (3.8-10.6) k/uL RBC (3.80-5.40) m/uL Hgb (11.4-16.0) gm/dL Hct (34.0-46.0) % MCV (80.0-100.0) fL MCH (25.0-35.0) pg MCHC (31.0-37.0) g/dL RDW (11.5-15.5) % Plt Count (150-450) k/uL Neutrophils % % Lymphocytes % % Monocytes % % Eosinophils % % Basophils % % Neutrophils # (1.3-7.7) k/uL Lymphocytes # (1.0-4.8) k/uL Monocytes # (0-1.0) k/uL Eosinophils # (0-0.7) k/uL Basophils # (0-0.2) k/uL Sodium (137-145) mmol/L Potassium (3.5-5.1) mmol/L Chloride (98-107) mmol/L Carbon Dioxide (22-30) mmol/L Anion Gap mmol/L BUN (7-17) mg/dL Creatinine (0.52-1.04) mg/dL Est GFR (MDRD) Af Amer (>60 ml/min/1.73 sqM) Est GFR (MDRD) Non-Af (>60 ml/min/1.73 sqM) Glucose (74-99) mg/dL POC Glucose (mg/dL) (75-99) mg/dL POC Glu Medical Office Coordinator ID Plasma Lactic Acid Octavio (0.7-2.0) mmol/L Calcium (8.4-10.2) mg/dL Magnesium (1.6-2.3) mg/dL Total Bilirubin (0.2-1.3) mg/dL AST (14-36) U/L ALT (9-52) U/L Alkaline Phosphatase (38-126) U/L Total Creatine Kinase (30-135) U/L CK-MB (CK-2) (0.0-2.4) ng/mL CK-MB (CK-2) Rel Index NT-Pro-B Natriuret Pep pg/mL Total Protein (6.3-8.2) g/dL Albumin (3.5-5.0) g/dL Amylase (30-110) U/L Lipase (23-300) U/L Urine Color Light Yellow Urine Appearance Clear (Clear) Urine pH 6.0 (5.0-8.0) Ur Specific [place] 1.005 (1.001-1.035) Urine Protein Negative (Negative) Urine Glucose (UA) 2+ H (Negative) Urine Ketones Negative (Negative) Urine Blood Negative (Negative) Urine Nitrate Negative (Negative) Urine Bilirubin Negative (Negative) Urine Urobilinogen <2.0 (<2.0) mg/dL Ur Leukocyte Esterase Large H (Negative) Urine RBC 2 (0-5) /hpf Urine WBC 25 H (0-5) /hpf Urine Bacteria Occasional H (None) /hpf - Radiology Data Radiology results: report reviewed (I did review the x-ray report evidence of a small right pleural effusion no other acute abnormalities), image reviewed Disposition Clinical Impression: Hypoglycemia, Dehydration, Renal insufficiency syndrome, Failure to thrive syndrome, adult Disposition: ADMITTED IP TO THIS [facility] Condition: Stable
[2016-09-02 19:21] LABS: Basophils % (A) 0 %; CH 31.6; CHCM 34.7; Eosinophils # (A) 0.1 k/uL (0-0.7); Eosinophils % (A) 1 %; HCT 38.8 % (34.0-46.0); HDW 2.53; Luc % (Auto) 1; Lymphocytes # (A) 2.1 k/uL (1.0-4.8); Lymphocytes % (A) 27 %; MCH 30.5 pg (25.0-35.0); MCHC 33.4 g/dL (31.0-37.0); MCV 91.5 fL (80.0-100.0); Mean Platelet Volume 8.5; Monocytes # (A) 0.6 k/uL (0-1.0); Monocytes % (A) 8 %; Neutrophils # (A) 4.8 k/uL (1.3-7.7); Neutrophils % (A) 62 %; RBC 4.24 m/uL (3.80-5.40); RDW 14.4 % (11.5-15.5); WBC 7.7 k/uL (3.8-10.6); WBC (Perox) 7.53
[2016-09-02 19:36] LABS: Calcium 9.7 mg/dL (8.4-10.2); Magnesium 1.4 mg/dL (1.6-2.3); Potassium 3.8 mmol/L (3.5-5.1); Total Bilirubin 0.7 mg/dL (0.2-1.3); Total Protein 5.9 g/dL (6.3-8.2)
[2016-09-02] MEDS ORDERED: DEXTROSE 25% IV STA (19:46)
[2016-09-02] MEDS ORDERED: DEXTROSE 50%-WATER 50 ML SYRINGE IVP STA (19:48)
[2016-09-02 19:56] LABS: Creatine Kinase MB 1.7 ng/mL (0.0-2.4)
--- NOTE | 2016-09-02 20:05 | XR ---
EXAMINATION TYPE: XR chest 2V DATE OF EXAM: 09/02/2016 7:12 PM COMPARISON: 08/13/2016 INDICATION: Cough TECHNIQUE: Single frontal view of the chest is obtained. FINDINGS: The heart size is normal. Cardiac valve surgery is been performed. The pulmonary vasculature is normal. Portable right pleural effusion is not excluded IMPRESSION: 1. Minimal right pleural effusion.
[2016-09-02] MEDS ORDERED: SODIUM CHLORIDE 0.9% 500 ML IV ONE (20:13)
[2016-09-02 20:17] LABS: Glucose,Whole Blood 190 mg/dL (75-99)
[2016-09-02] MEDS ORDERED: MAGNESIUM SULFATE-D5W PMX 1 GM in DEXTROSE/WATER 1 100ML.BAG IVPB ONE (20:51)
[2016-09-02 21:20] LABS: Appearance,Urine Clear (Clear); Bacteria,Urine Occasional /hpf; Bilirubin,Urine Negative (Negative); Glucose,Urine (UA) 2+ (Negative); Ketones,Urine Negative (Negative); Leukocyte Esterase,Urine Large (Negative); Nitrite,Urine Negative (Negative); Particle Count 27439; Protein,Urine Negative (Negative); RBC,Urine 2 /hpf (0-5); Specific Gravity,Urine 1.005 (1.001-1.035); UA Billing (MACRO vs. MICRO) MICRO; Urobilinogen,Urine <2.0 mg/dL (<2.0); WBC,Urine 25 /hpf (0-5)
[2016-09-02] MEDS ORDERED: NALOXONE 0.4 MG/ML 1 ML VIAL IV PRN (22:50)
[2016-09-03 00:26] LABS: Glucose,Whole Blood 86 mg/dL (75-99)
[2016-09-03 00:45] VITALS: BMI 18.8
[2016-09-03] MEDS: LEVOTHYROXINE 50 MCG TAB PO SCH (07:00)
[2016-09-03 07:04] LABS: Glucose,Whole Blood 77 mg/dL (75-99)
[2016-09-03] MEDS ORDERED: REPAGLINIDE 1 MG TAB PO SCH (07:30)
[2016-09-03] MEDS: MONTELUKAST 10 MG TAB PO SCH (08:28)
[2016-09-03] MEDS: MULTIVITAMINS, THERA 1 EACH TAB PO SCH (08:28)
[2016-09-03] MEDS: METOPROLOL TARTRATE 50 MG TAB PO SCH ×2 (08:28→22:02)
[2016-09-03] MEDS: FENOFIBRATE 160 MG TAB PO SCH (08:29)
[2016-09-03] MEDS: ATORVASTATIN 20 MG TAB PO SCH (08:29)
[2016-09-03] MEDS: CALCIUM CARBONATE 500 MG CHEWABLE PO SCH ×2 (08:29→22:03)
[2016-09-03] MEDS: APIXABAN 2.5 MG TABLET PO SCH ×2 (08:29→22:03)
[2016-09-03] MEDS: ASPIRIN 81 MG CHEW PO SCH (08:29)
[2016-09-03] MEDS: GABAPENTIN 100 MG CAP PO SCH ×2 (08:29→22:03)
[2016-09-03] MEDS ORDERED: LOSARTAN-HCTZ 50-12.5 MG 1 EACH TAB PO SCH (09:00)
[2016-09-03] MEDS ORDERED: NON-FORMULARY DRUG (Ubidecarenone [Co Q-10] 100 MG) PO SCH (09:00)
[2016-09-03 11:00] LABS: Hemoglobin A1C 6.5 % (4.2-6.1)
[2016-09-03 12:15] LABS: Glucose,Whole Blood 63 mg/dL (75-99)
[2016-09-03 12:15] LABS: Glucose,Whole Blood 89 mg/dL (75-99)
[2016-09-03 12:15] LABS: Glucose,Whole Blood 50 mg/dL (75-99)
[2016-09-03] MEDS ORDERED: SODIUM CHLORIDE 0.9% 1,000 ML IV STA (16:31)
[2016-09-03 16:40] LABS: Glucose,Whole Blood 177 mg/dL (75-99)
--- NOTE | 2016-09-03 16:40 | P.HPIM ---
History of Present Illness H&P Date: 09/03/16 Chief Complaint: weakness 86 yr old with history of DM2, HTN, A fib comes into the hospital with complaints of gen. weakness and decreased appetite for the last few days. Pt denies having associated nausea, vomiting, or diarrhea during the same period of time. Pt states that she attributes it to some of her medications. At the time of my examination, states she feels slightly better than on admission. Pt was noted to have hyponatremia, and persistent low glucose levels. Pt was restarted on diet and has improved over the last 2 repeat glucose levels. Pt was also noted to have lactic acidosis on admission. Denies having recent complaints of chest pain, TANG, palpitations, n/v or urinary urgency or frequency. 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 Past Anesthesia/Blood Transfusion Reactions: No Reported Reaction Past Psychological History: No Psychological Hx Reported Smoking Status: Former smoker Past Alcohol Use History: None Reported Additional Past Alcohol Use History / Comment(s): Pt states she started smoking in 1949 and quit in 1961. She ws a light smoker-2 packs a week. Past Drug Use History: None Reported - Past Family History Father History Unknown: Yes Mother History Unknown: Yes Medications and Allergies Home Medications Medication Instructions Recorded Confirmed Type Aspirin 81 mg PO DAILY 08/13/16 09/02/16 History Atorvastatin Calcium [Lipitor] 20 mg PO DAILY 08/13/16 09/02/16 History Calcium Carbonate [Calcium] 600 mg PO BID 08/13/16 09/02/16 History Fenofibrate 160 mg PO DAILY 08/13/16 09/02/16 History Gabapentin [Neurontin] 200 mg PO BID 08/13/16 09/02/16 History Losartan/Hydrochlorothiazide 1 tab PO DAILY 08/13/16 09/02/16 History [Hyzaar 100-25 Tablet] Montelukast [Singulair] 10 mg PO DAILY 08/13/16 09/02/16 History Multivitamins, Thera [Multivitamin] 1 tab PO DAILY 08/13/16 09/02/16 History Repaglinide [Prandin] 1 mg PO AC-BID 08/13/16 09/02/16 History Ubidecarenone [Co Q-10] 100 mg PO DAILY 08/13/16 09/02/16 History metFORMIN HCL [Glucophage Xr] 500 mg PO DAILY 08/13/16 09/02/16 History Metoprolol Tartrate [Lopressor] 100 mg PO BID 09/02/16 09/02/16 History Allergies Allergy/AdvReac Type Severity Reaction Status Date / Time tetracycline Allergy Rapid Verified 09/02/16 19:11 Heart Rate Physical Exam Vitals: Vital Signs Temp Pulse Pulse Resp BP BP Pulse Ox 09/03/16 15:39 96.9 F L 80 20 136/66 99 09/03/16 12:00 96.9 F L 67 20 113/67 95 09/03/16 08:00 97.5 F L 90 20 127/68 98 09/03/16 04:00 97.6 F 84 17 134/74 100 09/03/16 00:04 97.6 F 83 19 114/79 96 09/02/16 23:49 97.8 F 76 16 121/72 97 09/02/16 22:52 82 18 132/66 100 Intake and Output 09/03/16 09/03/16 09/03/16 06:59 14:59 22:59 Intake Total 1200 200 150 Output Total 400 150 250 Balance 800 50 -100 Intake: IV 1200 150 Magnesium Sulfate-D5w Pmx 100 1 gm In Dextrose/Water 1 100ml.bag @ 100 mls/hr IVPB ONCE ONE Rx#: [id number] Sodium Chloride 0.9% 1, 600 150 000 ml @ 75 mls/hr IV . [id number] STA Rx#:[id number] Sodium Chloride 0.9% 500 500 ml @ 999 mls/hr IV .Q31M ONE Rx#:[id number] Oral 200 Output: Urine 400 150 250 Other: Voiding Method Toilet # Voids 2 Weight 48.2 kg 48.2 kg Patient Weight 09/04/16 06:59 Weight 48.2 kg - Constitutional General appearance: average body habitus - EENT Eyes: PERRLA - Neck Neck: normal ROM - Respiratory Respiratory: bilateral: CTA, negative: rales, rhonchi, wheezing - Cardiovascular Rhythm: regular Heart sounds: normal: S1, S2 - Gastrointestinal General gastrointestinal: normal bowel sounds, no organomegaly, soft, no tenderness - Integumentary Integumentary: normal - Neurologic Neurologic: CNII-XII intact - Musculoskeletal Musculoskeletal: gait normal, generalized weakness, strength equal bilaterally - Psychiatric Psychiatric: A&O x's 3, appropriate affect Results CBC & Chem 7: 09/02/16 18:58 09/02/16 18:58 Labs: Abnormal Lab Results - Last 24 Hours (Table) 09/03/16 09/03/16 09/03/16 Range/Units 05:49 11:34 11:49 POC Glucose (mg/dL) 50 L 63 L (75-99) mg/dL Hemoglobin A1c 6.5 H (4.2-6.1) % Thrombosis Risk Factor Assmnt - Choose All That Apply Any of the Below Risk Factors Present?: No Other Risk Factors: Yes Each Risk Factor Represents 2 Points: Age 61-74 years Other congenital or acquired thrombophilia - If yes, enter type in comment: No Thrombosis Risk Factor Assessment Total Risk Factor Score: 2 Thrombosis Risk Factor Assessment Level: Low Risk Assessment and Plan Plan: 1. Hypoglycemia in a pt with Controlled DM2 on oral anti diabetic medications 2. Hyponatremia likely hypovolemic 3. Lactic acidosis 4. H/o of paroxysmal atrial fibrillation 5. HTN 6. CKD3 Plan IVF at 50cc/hr NS HOld antidiabetic medications PT/OT hold HCTZ MEds were reconciled Apixiban was restarted
[2016-09-03 20:45] LABS: Glucose,Whole Blood 214 mg/dL (75-99)
[2016-09-04] MEDS ORDERED: NITROGLYCERIN SL TABS 0.4 MG TAB SUBLINGUAL ONE (03:23)
[2016-09-04 06:14] LABS: Glucose,Whole Blood 152 mg/dL (75-99)
[2016-09-04] MEDS: LEVOTHYROXINE 50 MCG TAB PO SCH (06:37)
[2016-09-04 07:53] LABS: Basophils % (A) 0 %; CH 31.3; CHCM 33.5; Eosinophils # (A) 0.1 k/uL (0-0.7); Eosinophils % (A) 2 %; HCT 36.1 % (34.0-46.0); HDW 2.46; Luc # (Auto) 0.19; Luc % (Auto) 3; Lymphocytes % (A) 26 %; MCH 31.2 pg (25.0-35.0); MCHC 33.2 g/dL (31.0-37.0); MCV 93.9 fL (80.0-100.0); Mean Platelet Volume 9.2; Monocytes # (A) 0.7 k/uL (0-1.0); Monocytes % (A) 9 %; Neutrophils # (A) 4.8 k/uL (1.3-7.7); Neutrophils % (A) 61 %; RBC 3.84 m/uL (3.80-5.40); RDW 14.4 % (11.5-15.5); WBC 7.8 k/uL (3.8-10.6); WBC (Perox) 8.04
[2016-09-04 08:39] LABS: Anion Gap 7 mmol/L; Calcium 8.7 mg/dL (8.4-10.2); Carbon Dioxide 25 mmol/L (22-30); Chloride 104 mmol/L (98-107); Glucose 143 mg/dL (74-99); Non-African American GFR(MDRD) >60 (>60 ml/min/1.73 sqM); Sodium 136 mmol/L (137-145); Total Bilirubin 0.9 mg/dL (0.2-1.3)
[2016-09-04] MEDS: ASPIRIN 81 MG CHEW PO SCH (08:46)
[2016-09-04] MEDS: MULTIVITAMINS, THERA 1 EACH TAB PO SCH (08:46)
[2016-09-04] MEDS: CALCIUM CARBONATE 500 MG CHEWABLE PO SCH ×2 (08:46→21:19)
[2016-09-04] MEDS: METOPROLOL TARTRATE 50 MG TAB PO SCH ×3 (08:46→21:20)
[2016-09-04] MEDS: ATORVASTATIN 20 MG TAB PO SCH (08:46)
[2016-09-04] MEDS: APIXABAN 2.5 MG TABLET PO SCH ×2 (08:46→21:19)
[2016-09-04] MEDS: MONTELUKAST 10 MG TAB PO SCH (08:47)
[2016-09-04] MEDS: GABAPENTIN 100 MG CAP PO SCH ×2 (08:47→21:19)
[2016-09-04] MEDS: FENOFIBRATE 160 MG TAB PO SCH (08:47)
[2016-09-04 08:50] LABS: Potassium 4.8 mmol/L (3.5-5.1)
[2016-09-04 08:51] LABS: ALT 36 U/L (9-52); AST 49 U/L (14-36); Alkaline Phosphatase 23 U/L (38-126); Blood Urea Nitrogen 19 mg/dL (7-17); Total Protein 5.6 g/dL (6.3-8.2)
[2016-09-04 11:48] LABS: Glucose,Whole Blood 241 mg/dL (75-99)
[2016-09-04] MEDS: INSULIN LISPRO (humaLOG) 300 UNIT/3 ML VIAL SQ SCH ×3 (12:19→21:20)
[2016-09-04] MEDS ORDERED: CYANOCOBALAMIN 1,000 MCG/ML 1 ML VIAL IM ONE (12:34)
[2016-09-04] MEDS: LOSARTAN 50 MG TAB PO SCH (12:53)
--- NOTE | 2016-09-04 14:05 | P.PN ---
Subjective 86 yr old with history of DM2, HTN, A fib comes into the hospital with complaints of gen. weakness and decreased appetite for the last few days. Pt denies having associated nausea, vomiting, or diarrhea during the same period of time. Pt states that she attributes it to some of her medications. At the time of my examination, states she feels slightly better than on admission. Pt was noted to have hyponatremia, and persistent low glucose levels. Pt was restarted on diet and has improved over the last 2 repeat glucose levels. Pt was also noted to have lactic acidosis on admission. Denies having recent complaints of chest pain, TANG, palpitations, n/v or urinary urgency or frequency. 09/04/2016 States to be feeling slightly better denies having any chest pain, difficulty breathing, nausea, vomiting. Objective - Vital Signs Vital signs: Vital Signs Temp 97.3 F L 09/04/16 11:26 Pulse 88 09/04/16 11:26 Resp 18 09/04/16 11:26 BP 129/64 09/04/16 11:26 Pulse Ox 100 09/04/16 11:26 Intake & Output 09/03/16 09/04/16 09/04/16 18:59 06:59 18:59 Intake Total 350 1500 240 Output Total 400 750 300 Balance -50 750 -60 Weight 48.2 kg 48.8 kg Intake: IV 150 1200 Sodium Chloride 0.9% 1, 150 1200 000 ml @ 75 mls/hr IV . [id number] STA Rx#:[id number] Oral 200 300 240 Output: Urine 400 750 300 Other: Voiding Method Toilet # Voids 1 # Bowel Movements 0 - Exam Physical exam Gen. appearance oriented 3 in no distress Neck is supple no JVD Lungs good air entry clear to auscultation no rhonchi or wheezing Heart S1-S2 heard regular rate and rhythm no murmurs appreciated Abdomen is soft nontender no organomegaly bowel sounds are intact Neurologically cranial nerves II-12 grossly intact no focal motor or sensory deficits noted Skin no abnormalities appreciated - Labs CBC & Chem 7: 09/04/16 06:52 09/04/16 06:52 Labs: Abnormal Lab Results - Last 24 Hours (Table) 09/03/16 09/03/16 09/04/16 Range/Units 16:35 20:44 06:12 Sodium (137-145) mmol/L BUN (7-17) mg/dL Glucose (74-99) mg/dL POC Glucose (mg/dL) 177 H 214 H 152 H (75-99) mg/dL AST (14-36) U/L Alkaline Phosphatase (38-126) U/L Total Protein (6.3-8.2) g/dL Albumin (3.5-5.0) g/dL 09/04/16 09/04/16 Range/Units 06:52 11:41 Sodium 136 L (137-145) mmol/L BUN 19 H (7-17) mg/dL Glucose 143 H (74-99) mg/dL POC Glucose (mg/dL) 241 H (75-99) mg/dL AST 49 H (14-36) U/L Alkaline Phosphatase 23 L (38-126) U/L Total Protein 5.6 L (6.3-8.2) g/dL Albumin 2.9 L (3.5-5.0) g/dL Assessment and Plan Plan: 1. Hypoglycemia in a pt with Controlled DM2 on oral anti diabetic medications 2. Hyponatremia likely hypovolemic 3. Lactic acidosis 4. H/o of paroxysmal atrial fibrillation 5. HTN 6. CKD3 Plan Continue IV fluids at 50 mL per hour. Decrease metoprolol to 50 3 times a day and add verapamil 40 3 times a day. Add an appetite stimulant. PTOT. Apixiban was restarted
[2016-09-04 16:48] LABS: Glucose,Whole Blood 146 mg/dL (75-99)
[2016-09-04] MEDS: VERAPAMIL 40 MG TAB PO SCH ×2 (16:59→21:20)
[2016-09-04] MEDS: DRONABINOL 2.5 MG CAP PO SCH (16:59)
[2016-09-04 20:44] LABS: Glucose,Whole Blood 178 mg/dL (75-99)
[2016-09-05 06:00] LABS: Glucose,Whole Blood 92 mg/dL (75-99)
[2016-09-05 06:42] LABS: ALT 41 U/L (9-52); AST 38 U/L (14-36); Alkaline Phosphatase 34 U/L (38-126); Anion Gap 7 mmol/L; Blood Urea Nitrogen 17 mg/dL (7-17); Calcium 8.7 mg/dL (8.4-10.2); Carbon Dioxide 29 mmol/L (22-30); Chloride 98 mmol/L (98-107); Glucose 89 mg/dL (74-99); Non-African American GFR(MDRD) >60 (>60 ml/min/1.73 sqM); Sodium 134 mmol/L (137-145); Total Bilirubin 0.6 mg/dL (0.2-1.3); Total Protein 5.6 g/dL (6.3-8.2)
[2016-09-05] MEDS: INSULIN LISPRO (humaLOG) 300 UNIT/3 ML VIAL SQ SCH ×4 (06:44→21:06)
[2016-09-05] MEDS: DRONABINOL 2.5 MG CAP PO SCH ×2 (06:54→16:42)
[2016-09-05] MEDS: LEVOTHYROXINE 50 MCG TAB PO SCH (06:54)
[2016-09-05] MEDS: FENOFIBRATE 160 MG TAB PO SCH (09:53)
[2016-09-05] MEDS: ASPIRIN 81 MG CHEW PO SCH (09:54)
[2016-09-05] MEDS: ATORVASTATIN 20 MG TAB PO SCH (09:54)
[2016-09-05] MEDS: CALCIUM CARBONATE 500 MG CHEWABLE PO SCH ×2 (09:54→19:55)
[2016-09-05] MEDS: METOPROLOL TARTRATE 50 MG TAB PO SCH ×3 (09:54→21:06)
[2016-09-05] MEDS: GABAPENTIN 100 MG CAP PO SCH ×2 (09:54→19:55)
[2016-09-05] MEDS: VERAPAMIL 40 MG TAB PO SCH (09:54)
[2016-09-05] MEDS: APIXABAN 2.5 MG TABLET PO SCH ×2 (09:55→19:55)
[2016-09-05] MEDS: MULTIVITAMINS, THERA 1 EACH TAB PO SCH (09:55)
[2016-09-05] MEDS: MONTELUKAST 10 MG TAB PO SCH (09:55)
[2016-09-05 11:34] LABS: Glucose,Whole Blood 243 mg/dL (75-99)
[2016-09-05 12:26] LABS: Iron 49 ug/dL (37-170)
[2016-09-05 12:36] LABS: % Iron Saturation 15.8 % (20-50); Total Iron Binding Capacity 311 ug/dL (265-497)
[2016-09-05] MEDS ORDERED: VERAPAMIL 40 MG TAB PO STA (13:03)
[2016-09-05 13:27] LABS: Vitamin B12 >1000 pg/mL
--- NOTE | 2016-09-05 16:30 | P.DS ---
Providers Date of admission: 09/02/16 22:50 Attending physician: Varinder Davidson MD Primary care physician: Jean Claude Marti [facility] Course: 86 yr old with history of DM2, HTN, A fib comes into the hospital with complaints of gen. weakness and decreased appetite for the last few days. Pt denies having associated nausea, vomiting, or diarrhea during the same period of time. Pt states that she attributes it to some of her medications. At the time of my examination, states she feels slightly better than on admission. Pt was noted to have hyponatremia, and persistent low glucose levels. Pt was restarted on diet and has improved over the last 2 repeat glucose levels. Pt was also noted to have lactic acidosis on admission. Denies having recent complaints of chest pain, TANG, palpitations, n/v or urinary urgency or frequency. 09/04/2016 States to be feeling slightly better denies having any chest pain, difficulty breathing, nausea, vomiting. 09/05/2016 Patient was tolerating more diet. Appear to be in better spirits. Apparently walked the hallways without any difficulty. Objective - Vital Signs Vital signs: Vital Signs Temp 97.3 F L 09/04/16 11:26 Pulse 88 09/04/16 11:26 Resp 18 09/04/16 11:26 BP 129/64 09/04/16 11:26 Pulse Ox 100 09/04/16 11:26 Intake & Output 09/03/16 09/04/16 09/04/16 18:59 06:59 18:59 Intake Total 350 1500 240 Output Total 400 750 300 Balance -50 750 -60 Weight 48.2 kg 48.8 kg Intake: IV 150 1200 Sodium Chloride 0.9% 1, 150 1200 000 ml @ 75 mls/hr IV . [id number] STA Rx#:[id number] Oral 200 300 240 Output: Urine 400 750 300 Other: Voiding Method Toilet # Voids 1 # Bowel Movements 0 - Exam Physical exam Gen. appearance oriented 3 in no distress Neck is supple no JVD Lungs good air entry clear to auscultation no rhonchi or wheezing Heart S1-S2 heard regular rate and rhythm no murmurs appreciated Abdomen is soft nontender no organomegaly bowel sounds are intact Neurologically cranial nerves II-12 grossly intact no focal motor or sensory deficits noted Skin no abnormalities appreciated Assessment and Plan Plan: 1. Hypoglycemia in a pt with Controlled DM2 on oral anti diabetic medications 2. Hyponatremia likely hypovolemic 3. Lactic acidosis 4. H/o of paroxysmal atrial fibrillation 5. HTN 6. CKD3 In regards to diabetes. Patient will be discharged on metformin 250 mg twice a day. Patient has increased oral intake. Medications for rate control were changed to metoprolol 50 mg g 3 times a day and verapamil 80 mg 3 times a day. Losartan was decreased to 25 mg. Patient's H CTZ was discontinued. Due to hyponatremia on admission. Apixiban to continue. Patient will be evaluated by PT. Patient will be discharged home with home care. Patient Condition at Discharge: Stable Plan - Discharge Summary New Discharge Prescriptions: Dronabinol [Marinol] 2.5 mg PO AC-BID #15 cap Losartan [Cozaar] 25 mg PO DAILY #30 tab Metoprolol Tartrate [Lopressor] 50 mg PO TID #90 tab Verapamil [Isoptin] 80 mg PO TID #90 tab metFORMIN HCL [Glucophage] 250 mg PO BID #30 tab Discharge Medication List Aspirin 81 mg PO DAILY 08/13/16 [History] Atorvastatin Calcium [Lipitor] 20 mg PO DAILY 08/13/16 [History] Calcium Carbonate [Calcium] 600 mg PO BID 08/13/16 [History] Fenofibrate 160 mg PO DAILY 08/13/16 [History] Gabapentin [Neurontin] 200 mg PO BID 08/13/16 [History] Montelukast [Singulair] 10 mg PO DAILY 08/13/16 [History] Multivitamins, Thera [Multivitamin] 1 tab PO DAILY 08/13/16 [History] Ubidecarenone [Co Q-10] 100 mg PO DAILY 08/13/16 [History] Apixaban [Eliquis] 2.5 mg PO BID #60 tablet 08/16/16 [Rx] Levothyroxine Sodium [Synthroid] 50 mcg PO DAILY@0630 #30 tab 08/16/16 [Rx] Metoprolol Tartrate [Lopressor] 100 mg PO BID 09/02/16 [History] Dronabinol [Marinol] 2.5 mg PO AC-BID #15 cap 09/05/16 [Rx] Losartan [Cozaar] 25 mg PO DAILY #30 tab 09/05/16 [Rx] Metoprolol Tartrate [Lopressor] 50 mg PO TID #90 tab 09/05/16 [Rx] Verapamil [Isoptin] 80 mg PO TID #90 tab 09/05/16 [Rx] metFORMIN HCL [Glucophage] 250 mg PO BID #30 tab 09/05/16 [Rx] Follow up Appointment(s)/Referral(s): [facility], [NON-STAFF] - Jean Claude Kidd MD [Primary Care Provider] - 1-2 days Marlo Espinoza MD [STAFF PHYSICIAN] - 1 Week Activity/Diet/Wound Care/Special Instructions: Glucometer - [facility] - [phone] (to be delivered to hospital room prior to discharge) Discharge Disposition: HOME SELF-CARE
[2016-09-05] MEDS: VERAPAMIL 80 MG TAB PO SCH ×2 (16:40→21:05)
[2016-09-05 16:49] LABS: Glucose,Whole Blood 151 mg/dL (75-99)
[2016-09-05] MEDS ORDERED: MAGNESIUM HYDROXIDE 2,400 MG/10 ML CUP PO PRN (18:07)
[2016-09-05] MEDS: LOSARTAN 50 MG TAB PO SCH (20:50)
[2016-09-05] MEDS ORDERED: DOCUSATE 100 MG CAP PO SCH (21:00)
[2016-09-05 21:26] LABS: Glucose,Whole Blood 211 mg/dL (75-99)
[2016-09-06] MEDS: LEVOTHYROXINE 50 MCG TAB PO SCH (06:31)
[2016-09-06 07:05] LABS: Glucose,Whole Blood 127 mg/dL (75-99)
[2016-09-06 07:31] VITALS: RESP 16
[2016-09-06] MEDS ORDERED: LOSARTAN 25 MG TAB PO SCH (09:00)
[2016-09-06] MEDS: DRONABINOL 2.5 MG CAP PO SCH ×2 (10:13→16:44)
[2016-09-06] MEDS: MULTIVITAMINS, THERA 1 EACH TAB PO SCH (10:13)
[2016-09-06] MEDS: METOPROLOL TARTRATE 50 MG TAB PO SCH ×2 (10:13→16:45)
[2016-09-06] MEDS: GABAPENTIN 100 MG CAP PO SCH (10:14)
[2016-09-06] MEDS: VERAPAMIL 40 MG TAB PO SCH ×2 (10:14→16:45)
[2016-09-06] MEDS: MONTELUKAST 10 MG TAB PO SCH (10:14)
[2016-09-06] MEDS: APIXABAN 2.5 MG TABLET PO SCH (10:14)
[2016-09-06] MEDS: ATORVASTATIN 20 MG TAB PO SCH (10:15)
[2016-09-06] MEDS: CALCIUM CARBONATE 500 MG CHEWABLE PO SCH (10:15)
[2016-09-06] MEDS: FENOFIBRATE 160 MG TAB PO SCH (10:15)
[2016-09-06] MEDS: ASPIRIN 81 MG CHEW PO SCH (10:15)
[2016-09-06] MEDS: INSULIN LISPRO (humaLOG) 300 UNIT/3 ML VIAL SQ SCH ×2 (10:16→13:20)
--- NOTE | 2016-09-06 12:01 | P.DS ---
Providers Date of admission: 09/02/16 22:50 Attending physician: Varinder Davidson MD Primary care physician: Jean Claude Marti [facility] Course: 86 yr old with history of DM2, HTN, A fib comes into the hospital with complaints of gen. weakness and decreased appetite for the last few days. Pt denies having associated nausea, vomiting, or diarrhea during the same period of time. Pt states that she attributes it to some of her medications. At the time of my examination, states she feels slightly better than on admission. Pt was noted to have hyponatremia, and persistent low glucose levels. Pt was restarted on diet and has improved over the last 2 repeat glucose levels. Pt was also noted to have lactic acidosis on admission. Denies having recent complaints of chest pain, TANG, palpitations, n/v or urinary urgency or frequency. 09/04/2016 States to be feeling slightly better denies having any chest pain, difficulty breathing, nausea, vomiting. 09/05/2016 Patient was tolerating more diet. Appear to be in better spirits. Apparently walked the hallways without any difficulty. Is awake significant for nature was tolerating her breakfast. No additional complaints reported. Physical exam Gen. appearance oriented 3 in no distress Neck is supple no JVD Lungs good air entry clear to auscultation no rhonchi or wheezing Heart S1-S2 heard regular rate and rhythm no murmurs appreciated Abdomen is soft nontender no organomegaly bowel sounds are intact Neurologically cranial nerves II-12 grossly intact no focal motor or sensory deficits noted Skin no abnormalities appreciated Assessment and Plan Plan: 1. Hypoglycemia in a pt with Controlled DM2 on oral anti diabetic medications 2. Hyponatremia likely hypovolemic 3. Lactic acidosis 4. H/o of paroxysmal atrial fibrillation 5. HTN 6. CKD3 #7 generalized weakness attributed to beta kemar use hence beta blockers decrease and verapamil was added. Currently rate controlled. Is recommended to follow up with cardiology. Patient will be discharged on metformin 250 mg twice a day. Patient has increased oral intake. Medications for rate control were changed to metoprolol 50 mg g 3 times a day and verapamil 120 mg 3 times a day. Losartan was decreased to 25 mg. Patient' s HCTZ was discontinued. Due to hyponatremia on admission. Apixiban to continue. Patient will be evaluated by PT. Patient will be discharged home with home care. Follow up with Cardiology Patient Condition at Discharge: Stable Plan - Discharge Summary New Discharge Prescriptions: Dronabinol [Marinol] 2.5 mg PO AC-BID #15 cap Losartan [Cozaar] 25 mg PO DAILY #30 tab Metoprolol Tartrate [Lopressor] 50 mg PO TID #90 tab Verapamil [Isoptin] 80 mg PO TID #90 tab metFORMIN HCL [Glucophage] 250 mg PO BID #30 tab Discharge Medication List Aspirin 81 mg PO DAILY 08/13/16 [History] Atorvastatin Calcium [Lipitor] 20 mg PO DAILY 08/13/16 [History] Calcium Carbonate [Calcium] 600 mg PO BID 08/13/16 [History] Fenofibrate 160 mg PO DAILY 08/13/16 [History] Gabapentin [Neurontin] 200 mg PO BID 08/13/16 [History] Montelukast [Singulair] 10 mg PO DAILY 08/13/16 [History] Multivitamins, Thera [Multivitamin] 1 tab PO DAILY 08/13/16 [History] Ubidecarenone [Co Q-10] 100 mg PO DAILY 08/13/16 [History] Apixaban [Eliquis] 2.5 mg PO BID #60 tablet 08/16/16 [Rx] Levothyroxine Sodium [Synthroid] 50 mcg PO DAILY@0630 #30 tab 08/16/16 [Rx] Metoprolol Tartrate [Lopressor] 100 mg PO BID 09/02/16 [History] Dronabinol [Marinol] 2.5 mg PO AC-BID #15 cap 09/05/16 [Rx] Losartan [Cozaar] 25 mg PO DAILY #30 tab 09/05/16 [Rx] Metoprolol Tartrate [Lopressor] 50 mg PO TID #90 tab 09/05/16 [Rx] Verapamil [Isoptin] 80 mg PO TID #90 tab 09/05/16 [Rx] metFORMIN HCL [Glucophage] 250 mg PO BID #30 tab 09/05/16 [Rx] Follow up Appointment(s)/Referral(s): [facility], [NON-STAFF] - Jean Claude Kidd MD [Primary Care Provider] - 09/12/16 10:00 am Marlo Espinoza MD [STAFF PHYSICIAN] - 09/12/16 1:00 pm Patient Instructions/Handouts: Hypoglycemia in a Person with Diabetes (DC) Activity/Diet/Wound Care/Special Instructions: Cardiac, diabetic diet. Fall precautions. [facility] - [phone] (to be delivered to hospital room prior to discharge) Discharge Disposition: HOME SELF-CARE
[2016-09-06 12:05] LABS: Glucose,Whole Blood 204 mg/dL (75-99)
[2016-09-06] MEDS ORDERED: POLYETHYLENE GLYCOL 3350 17 GM POWD.PACK PO STA (12:36)
[2016-09-06 14:54] VITALS: BP 134/84; PULSE 94; TEMP 98.1
== END 2016-09-06 17:37 | disposition home health service (06) | DRG 638 ==
LOC: EC 18:13 → 6SEL 22:50 → 4MS4W 09-05 21:35
PROVIDERS: ADMIT Internal Medicine; ATTEND Internal Medicine
DX: E11.649 Type 2 diabetes mellitus with hypoglycemia without coma (principal); E87.1 Hypo-osmolality and hyponatremia; E87.2 Acidosis; E86.0 Dehydration; E11.22 Type 2 diabetes mellitus with diabetic chronic kidney disease; I48.0 Paroxysmal atrial fibrillation; N18.3 Chronic kidney disease, stage 3 (moderate); E11.40 Type 2 diabetes mellitus with diabetic neuropathy, unspecified; I12.9 Hypertensive chronic kidney disease with stage 1 through stage 4 chronic kidney disease, or unspecified chronic kidney disease; R62.7 Adult failure to thrive; E78.5 Hyperlipidemia, unspecified; E86.1 Hypovolemia; I25.10 Atherosclerotic heart disease of native coronary artery without angina pectoris; I34.1 Nonrheumatic mitral (valve) prolapse; E03.9 Hypothyroidism, unspecified; Z79.82 Long term (current) use of aspirin; Z79.01 Long term (current) use of anticoagulants; Z79.899 Other long term (current) drug therapy; Z85.3 Personal history of malignant neoplasm of breast; Z95.2 Presence of prosthetic heart valve; Z88.1 Allergy status to other antibiotic agents; Z87.891 Personal history of nicotine dependence
CPT/HCPCS: 36415; 71020; 80053; 81001; 82150; 82550; 82553; 82607; 83036; 83540; 83550; 83605; 83690; 83735; 83880; 84443; 85025; 87040; 93005; 96361; 96365; 96375; 99285

== ENCOUNTER 2016-09-09 16:42 | Inpatient (IN) | payer MEDICARE ==
[2016-09-09] MEDS ORDERED: SODIUM CHLORIDE 0.9% 1,000 ML IV STA ×2 (17:14)
--- NOTE | 2016-09-09 17:45 | ED ---
General Adult HPI - General Chief complaint: Recheck/Abnormal Lab/Rx Stated complaint: elevated blood sugar 460 Time Seen by Provider: 09/09/16 17:14 Source: patient, RN notes reviewed, old records reviewed Mode of arrival: ambulatory Limitations: no limitations - History of Present Illness Initial comments: This is an 86-year-old female ER for evaluation. This patient does present for evaluation of weakness, increasing weakness and fatigue, patient was just admitted to the hospital and discharged home. Patient is also having elevated blood sugars. Patient's by in by family who is doing most of the talking and history taking, patient esophagus and has no complaints - Related Data Home Medications Medication Instructions Recorded Confirmed Aspirin 81 mg PO DAILY 08/13/16 09/09/16 Atorvastatin Calcium [Lipitor] 20 mg PO DAILY 08/13/16 09/09/16 Calcium Carbonate [Calcium] 600 mg PO BID 08/13/16 09/09/16 Fenofibrate 160 mg PO DAILY 08/13/16 09/09/16 Gabapentin [Neurontin] 200 mg PO BID 08/13/16 09/09/16 Montelukast [Singulair] 10 mg PO DAILY 08/13/16 09/09/16 Multivitamins, Thera [Multivitamin] 1 tab PO DAILY 08/13/16 09/09/16 Ubidecarenone [Co Q-10] 100 mg PO DAILY 08/13/16 09/09/16 Previous Rx's Medication Instructions Recorded Apixaban [Eliquis] 2.5 mg PO BID #60 tablet 08/16/16 Levothyroxine Sodium [Synthroid] 50 mcg PO DAILY@0630 #30 tab 08/16/16 Losartan [Cozaar] 25 mg PO DAILY #30 tab 09/05/16 Metoprolol Tartrate [Lopressor] 50 mg PO TID #90 tab 09/05/16 metFORMIN HCL [Glucophage] 250 mg PO BID #30 tab 09/05/16 Verapamil [Isoptin] 120 mg PO TID #90 tab 09/06/16 Allergies Allergy/AdvReac Type Severity Reaction Status Date / Time tetracycline Allergy Rapid Verified 09/09/16 17:23 Heart Rate Review of Systems ROS Statement: Those systems with pertinent positive or pertinent negative responses have been documented in the HPI. ROS Other: All systems not noted in ROS Statement are negative. 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 Past Anesthesia/Blood Transfusion Reactions: No Reported Reaction Past Psychological History: No Psychological Hx Reported Smoking Status: Former smoker Past Alcohol Use History: None Reported Additional Past Alcohol Use History / Comment(s): Pt states she started smoking in 194 and quit in 1961. She ws a light smoker-2 packs a week. Past Drug Use History: None Reported - Past Family History Father History Unknown: Yes Mother History Unknown: Yes General Exam Limitations: no limitations General appearance: alert, in no apparent distress Head exam: Present: atraumatic, normocephalic, normal inspection Eye exam: Present: normal appearance, PERRL, EOMI. Absent: scleral icterus, conjunctival injection, periorbital swelling ENT exam: Present: normal exam, mucous membranes moist Neck exam: Present: normal inspection. Absent: tenderness, meningismus, lymphadenopathy Respiratory exam: Present: normal lung sounds bilaterally. Absent: respiratory distress, wheezes, rales, rhonchi, stridor Cardiovascular Exam: Present: regular rate, normal rhythm, normal heart sounds. Absent: systolic murmur, diastolic murmur, rubs, gallop, clicks GI/Abdominal exam: Present: soft, normal bowel sounds. Absent: distended, tenderness, guarding, rebound, rigid Extremities exam: Present: normal inspection, full ROM, normal capillary refill. Absent: tenderness, pedal edema, joint swelling, calf tenderness Back exam: Present: normal inspection Neurological exam: Present: alert, oriented X3, CN II-XII intact Psychiatric exam: Present: normal affect, normal mood Skin exam: Present: warm, dry, intact, normal color. Absent: rash Course Vital Signs 09/09/16 17:04 Temperature 98.4 F Pulse Rate 64 Respiratory 18 Rate Blood Pressure 130/72 O2 Sat by Pulse 98 Oximetry - Reevaluation(s) Reevaluation #1: 09/09/16 18:46 Moon family greater than 50 minutes regarding patient and recent hospital course, treatment issues. EKG Findings - EKG Comments: EKG Findings:: EKG shows A. fib rate of 74, QRS 106, QTC 517 Medical Decision Making - Medical Decision Making A phone female the ER for evaluation of reconsult analysis elevated blood sugar , patient is severely depleted sodium levels. Patient be admitted for sodium replacement resuscitation and monitoring of blood sugar. Medication adjustments - Lab Data Result diagrams: 09/09/16 17:45 09/09/16 17:45 Lab Results 09/09/16 09/09/16 09/09/16 Range/Units 17:45 17:45 17:45 WBC 10.1 (3.8-10.6) k/uL RBC 3.79 L (3.80-5.40) m/uL Hgb 11.7 (11.4-16.0) gm/dL Hct 35.8 (34.0-46.0) % MCV 94.6 (80.0-100.0) fL MCH 31.0 (25.0-35.0) pg MCHC 32.7 (31.0-37.0) g/dL RDW 15.2 (11.5-15.5) % Plt Count 226 (150-450) k/uL Neutrophils % 69 % Lymphocytes % 20 % Monocytes % 7 % Eosinophils % 0 % Basophils % 1 % Neutrophils # 7.0 (1.3-7.7) k/uL Lymphocytes # 2.1 (1.0-4.8) k/uL Monocytes # 0.7 (0-1.0) k/uL Eosinophils # 0.0 (0-0.7) k/uL Basophils # 0.1 (0-0.2) k/uL PT 13.0 H (9.0-12.0) sec INR 1.3 (<1.1) APTT 23.6 (22.0-30.0) sec Sodium 119 L* (137-145) mmol/L Potassium 5.7 H (3.5-5.1) mmol/L Chloride 88 L (98-107) mmol/L Carbon Dioxide 24 (22-30) mmol/L Anion Gap 7 mmol/L BUN 53 H (7-17) mg/dL Creatinine 1.00 (0.52-1.04) mg/dL Est GFR (MDRD) Af Amer >60 (>60 ml/min/1.73 sqM) Est GFR (MDRD) Non-Af 52 (>60 ml/min/1.73 sqM) Glucose 343 H (74-99) mg/dL Calcium 9.5 (8.4-10.2) mg/dL Phosphorus 3.2 (2.5-4.5) mg/dL Magnesium 1.8 (1.6-2.3) mg/dL Total Bilirubin 0.5 (0.2-1.3) mg/dL AST 38 H (14-36) U/L ALT 46 (9-52) U/L Alkaline Phosphatase 35 L (38-126) U/L Total Protein 5.6 L (6.3-8.2) g/dL Albumin 3.1 L (3.5-5.0) g/dL Acetone, Qual Negative (Negative) - Radiology Data Radiology results: report reviewed (Chest x-ray is negative for acute disease), image reviewed Disposition Clinical Impression: Dehydration, Renal insufficiency syndrome, Hyponatremia, Hyperglycemia Disposition: ADMITTED IP TO THIS [facility] Condition: Fair Referrals: Jean Claude Kidd MD [Primary Care Provider] - 1-2 days
[2016-09-09 17:56] LABS: Basophils # (A) 0.1 k/uL (0-0.2); Basophils % (A) 1 %; CH 31.8; CHCM 33.8; Eosinophils % (A) 0 %; HCT 35.8 % (34.0-46.0); HDW 2.42; HGB 11.7 gm/dL (11.4-16.0); Luc # (Auto) 0.22; Luc % (Auto) 2; Lymphocytes # (A) 2.1 k/uL (1.0-4.8); Lymphocytes % (A) 20 %; MCHC 32.7 g/dL (31.0-37.0); MCV 94.6 fL (80.0-100.0); Mean Platelet Volume 8.8; Monocytes # (A) 0.7 k/uL (0-1.0); Monocytes % (A) 7 %; Neutrophils % (A) 69 %; RBC 3.79 m/uL (3.80-5.40); RDW 15.2 % (11.5-15.5); WBC 10.1 k/uL (3.8-10.6); WBC (Perox) 10.08
--- NOTE | 2016-09-09 17:59 | XR ---
EXAMINATION TYPE: XR chest 2V DATE OF EXAM: 09/09/2016 5:54 PM COMPARISON: Chest x-ray from one week ago. HISTORY: Weakness and hypoglycemia. TECHNIQUE: Frontal and lateral views of the chest are obtained. FINDINGS: There are small bilateral pleural effusions now present. There is no suspicious focal airs pace opacity or pneumothorax seen bilaterally. The cardiac silhouette size is enlarged with metallic mitral valvular ring and atherosclerotic thoracic aorta redemonstrated. The osseous structures are demineralized. IMPRESSION: Cardiomegaly with new small bilateral pleural effusions, consider CHF exacerbation, clin ical correlation advised.
[2016-09-09 18:05] LABS: INR 1.3 (<1.1); Partial Thromboplastin Time 23.6 sec (22.0-30.0)
[2016-09-09 18:06] LABS: ALT 46 U/L (9-52); AST 38 U/L (14-36); Alkaline Phosphatase 35 U/L (38-126); Anion Gap 7 mmol/L; Blood Urea Nitrogen 53 mg/dL (7-17); Calcium 9.5 mg/dL (8.4-10.2); Carbon Dioxide 24 mmol/L (22-30); Chloride 88 mmol/L (98-107); Glucose 343 mg/dL (74-99); Magnesium 1.8 mg/dL (1.6-2.3); Non-African American GFR(MDRD) 52 (>60 ml/min/1.73 sqM); Phosphorous 3.2 mg/dL (2.5-4.5); Potassium 5.7 mmol/L (3.5-5.1); Total Bilirubin 0.5 mg/dL (0.2-1.3); Total Protein 5.6 g/dL (6.3-8.2)
[2016-09-09 18:11] LABS: Sodium 119 mmol/L (137-145)
[2016-09-09 18:29] LABS: Creatine Kinase MB 1.3 ng/mL (0.0-2.4)
[2016-09-09] MEDS ORDERED: SODIUM CHLORIDE 0.9% 1,000 ML IV ONE (18:42)
[2016-09-09 19:00] LABS: Troponin I 0.048 ng/mL (0.000-0.034)
[2016-09-09 20:43] LABS: Appearance,Urine Clear (Clear); Bacteria,Urine Many /hpf; Bilirubin,Urine Negative (Negative); Glucose,Urine (UA) 4+ (Negative); Ketones,Urine Negative (Negative); Leukocyte Esterase,Urine Small (Negative); Nitrite,Urine Positive (Negative); PH, Urine 5.5 (5.0-8.0); Particle Count 14140; Protein,Urine Negative (Negative); RBC,Urine 3 /hpf (0-5); Specific Gravity,Urine 1.016 (1.001-1.035); UA Billing (MACRO vs. MICRO) MICRO; Urobilinogen,Urine <2.0 mg/dL (<2.0); WBC,Urine 9 /hpf (0-5)
[2016-09-09 22:26] LABS: Glucose,Whole Blood 276 mg/dL (75-99)
[2016-09-10] MEDS: ACETAMINOPHEN TAB 325 MG TAB PO PRN ×2 (01:28→22:09)
[2016-09-10] MEDS: GABAPENTIN 100 MG CAP PO SCH ×2 (01:32→08:50)
[2016-09-10] MEDS: METOPROLOL TARTRATE 50 MG TAB PO SCH ×4 (01:32→22:59)
[2016-09-10] MEDS: metFORMIN 500 MG TAB PO SCH ×2 (01:34→08:51)
[2016-09-10] MEDS: VERAPAMIL 40 MG TAB PO SCH ×4 (01:34→22:59)
[2016-09-10] MEDS: CALCIUM CARBONATE 500 MG CHEWABLE PO SCH ×2 (01:38→08:50)
[2016-09-10] MEDS: LEVOTHYROXINE 50 MCG TAB PO SCH (06:07)
[2016-09-10 07:22] LABS: Glucose,Whole Blood 233 mg/dL (75-99)
[2016-09-10] MEDS: MULTIVITAMINS, THERA 1 EACH TAB PO SCH (08:50)
[2016-09-10] MEDS: MONTELUKAST 10 MG TAB PO SCH (08:50)
[2016-09-10] MEDS: LOSARTAN 25 MG TAB PO SCH (08:50)
[2016-09-10] MEDS: FENOFIBRATE 160 MG TAB PO SCH (08:50)
[2016-09-10] MEDS: INSULIN LISPRO (humaLOG) 300 UNIT/3 ML VIAL SQ SCH ×3 (08:51→17:00)
[2016-09-10] MEDS: ATORVASTATIN 20 MG TAB PO SCH (08:51)
[2016-09-10] MEDS ORDERED: ASPIRIN 81 MG CHEW PO SCH (09:00)
[2016-09-10] MEDS ORDERED: NON-FORMULARY DRUG (Ubidecarenone [Co Q-10] 100 MG) PO SCH (09:00)
[2016-09-10 11:18] LABS: Anion Gap 10 mmol/L; Blood Urea Nitrogen 38 mg/dL (7-17); Calcium 8.7 mg/dL (8.4-10.2); Carbon Dioxide 18 mmol/L (22-30); Chloride 97 mmol/L (98-107); Glucose 259 mg/dL (74-99); Non-African American GFR(MDRD) >60 (>60 ml/min/1.73 sqM); Potassium 5.3 mmol/L (3.5-5.1); Sodium 125 mmol/L (137-145)
[2016-09-10] MEDS: SODIUM CHLORIDE 0.9% 1,000 ML IV SCH ×2 (11:20→22:18)
[2016-09-10] MEDS: ENOXAPARIN 40 MG/0.4 ML SYRINGE SQ SCH (11:20)
[2016-09-10 11:55] LABS: Hemoglobin A1C 6.9 % (4.2-6.1)
[2016-09-10 12:40] LABS: Glucose,Whole Blood 202 mg/dL (75-99)
[2016-09-10 13:12] VITALS: BMI 21.9
--- NOTE | 2016-09-10 13:54 | CONS ---
DATE OF CONSULTATION: Ms. Boucher is an 86-year-old female who is seen for the cardiac evaluation. This patient's old medical records reviewed. Patient was just recently discharged from the hospital after being admitted with atrial fibrillation and weakness. Since the discharge patient continues to have increasing weakness and fatigue. Patient denied any nausea, vomiting, diarrhea. Patient is having mild epigastric pain. During the last admission, patient's sodium was 134 at the time of discharge. Patient was on hydro-Diuril at home before which was discontinued. I am not sure whether patient started taking back hydro-Diuril or not. Patient's home medications include Lipitor 20 mg daily, calcium, Neurontin, Singulair, coenzyme-Q, Eliquis, Synthroid, Lopressor, Glucophage and Isoptin. Past medical history includes history of breast cancer with surgery, history of neuropathy, history of prior stroke. History of mitral valve replacement, and cholecystectomy. Physical examination at present reveals 86-year-old female who does not appear to be in any acute distress. She is feeling generally weak. Patient is afebrile. Patient's blood pressure is 127/61 mmHg, heart rate is now 80 to 90 per minute. HEENT examination is negative. Neck is supple. There is no increase in jugular venous pressure. Both the carotid pulses are felt. There is no bruit. Chest is symmetrical. HEART: The PMI is not felt. First and second heart sounds are normal. Lungs are clinically clear to auscultation and percussion. Abdomen is soft. Liver and spleen are not enlarged. Bowel sounds are heard. EXTREMITIES: Peripheral pulsations are 1+. Patient's hemoglobin is 11.7, sodium is 119. Blood sugar was 343, potassium is 5.7, BUN is 53 and creatinine is 1.0, two sets of troponins are 0.048 and 1061. FINAL IMPRESSION: 1. This patient is primarily admitted with generalized weakness, which is most likely secondary to hyponatremia. Hyponatremia appears to be euvolemic but patient does have 1 to 2+ edema over the legs. Patient's blood sugar now is up to 233. 2. Atrial fibrillation with controlled ventricular response. 3. Patient had a mild elevation of troponin, difficult to explain it. Could be secondary to supply and demand mismatch. There is no history suggestive of acute coronary syndrome. We will continue the patient on the medical treatment. Echo and Doppler study will be obtained. We will check urine sodium, creatinine, and osmolality. Continue IV fluids at 100 mL/h. Echo and Doppler study will be done.
[2016-09-10] MEDS: LINAGLIPTIN 5 MG TABLET PO SCH (16:48)
[2016-09-10 16:59] LABS: Glucose,Whole Blood 174 mg/dL (75-99)
--- NOTE | 2016-09-10 19:23 | HP ---
DATE OF ADMISSION: 09/09/2016 PRESENTING COMPLAINT: Weak and tired. HISTORY OF PRESENTING COMPLAINT: This is a very pleasant 86-year-old patient who follows with Dr. Kidd. The patient's chronic medical conditions include diabetes mellitus, type 2, hypertension, hypothyroid, mitral valve prolapse and peripheral neuropathy. Patient has known atrial fibrillation. Patient now presents with her and daughter. Patient has been dry heaving; decreased appetite; has been losing weight. Sometimes gets loose stools. Feeling weak, tired, rundown. Decreased ambulation. Just rundown. REVIEW OF SYSTEMS: CONSTITUTIONAL: Weak and tired. HEENT: Decreased hearing. RESPIRATORY: Occasionally short of breath. CARDIOVASCULAR: As above. GASTROINTESTINAL: Occasional diarrhea. GENITOURINARY: None. DERMATOLOGIC: None. HEMATOLOGIC: None. LYMPHATICS: None. PSYCHIATRY: Forgetful. NEUROLOGICAL: Numbness and tingling in the feet. PAST MEDICAL HISTORY: 1. Diabetes mellitus, type 2. 2. Hypertension. 3. Mitral valve prolapse. 4. Hypothyroidism. PAST SURGICAL HISTORY: 1. . 2. Cholecystectomy. 3. Hysterectomy. 4. Left breast removal in 1985. SOCIAL HISTORY: Does not smoke. No alcohol. . Homemaker. FAMILY HISTORY: Reviewed; non-contributory to presentation. ALLERGIES: TETRACYCLINE. HOME MEDICATIONS: 1. Calcium 600 mg p.o. b.i.d. 2. Lipitor 20 mg daily. 3. Aspirin 81 mg daily. 4. Eliquis 2.5 b.i.d. 5. Neurontin 200 mg b.i.d. 6. TriCor 160 mg p.o. daily. 7. Singulair 10 mg p.o. daily. 8. Lopressor 50 mg p.o. t.i.d. 9. Cozaar 25 mg daily. 10. Synthroid 50 mcg p.o. daily. 11. Glucophage 250 mg p.o. b.i.d. 12. Isoptin 120 mg p.o. t.i.d. 13. CoQ10 100 mg p.o. daily. 14. Multivitamin 1 tablet p.o. daily. PHYSICAL EXAMINATION: VITAL SIGNS ON PRESENTATION: Temperature 98.4, pulse 64, respiratory rate 18, blood pressure 130/72, pulse ox 98% on room air. GENERAL APPEARANCE: Average build. Lying in bed, very tired-appearing. EYES: Pupils equal. Conjunctiva pale. NECK: JVD not raised. Mass not palpable. RESPIRATORY: Effort normal. LUNGS: Decreased breath sounds. CARDIOVASCULAR: Heart sounds irregular. No edema. ABDOMEN: Soft, nontender. Liver and spleen not palpable. LYMPHATIC: No lymph node palpable in neck or axillae. PSYCHIATRY: Awake. Answering simple questions. Mood and affect normal. NEUROLOGICAL: Pupils equal. Cranial nerves grossly intact. MUSCULOSKELETAL: Evidence of osteoarthritis in multiple joints. INVESTIGATIONS: Sodium 119, potassium 5.7. BUN 53, creatinine 1.0. Glucose 343. Albumin 3.1. EKG: Atrial fibrillation, rate controlled. ASSESSMENT: 1. Hyponatremia with normal osmolar. Patient's daughter at the bedside. There has been increasing fluid intake. Salt intake has been low. This could well be contributing to the patient's nausea and feeling more weak and tired. Patient needs increased salt content and some fluid restriction. 2. Persistent atrial fibrillation, rate controlled. 3. Diabetes mellitus, type 2, chronically on hypoglycemic. 4. Essential hypertension. 5. Nausea; also could be contributing from patient being on metformin, but not taking ( ) that could cause also the diarrhea. 6. Mitral valve prolapse. 7. Diabetes mellitus, type 2, causing peripheral neuropathy. 8. Hypothyroidism, chronic. 9. Troponin leak, probably hemodynamic mismatch. 10. Medical debility, multifactorial. 11. Primary osteoarthritis in multiple joints, bilateral. 12. Hyperkalemia. Patient is on Cozaar. PLAN: At this point we will stop patient's Neurontin, as neuropathy is not painful. Will also stop patient's Cozaar. Glucophage will be discontinued and use Tradjenta in place; as not much food, this actually can cause diarrhea. Will also stop the patient's other supplements right now. Will get Physical Therapy involved. Care was discussed with the and daughter at the bedside. Questions were answered. Will follow.
[2016-09-10 20:40] LABS: Glucose,Whole Blood 196 mg/dL (75-99)
[2016-09-11] MEDS: ACETAMINOPHEN TAB 325 MG TAB PO PRN ×2 (03:21→18:52)
[2016-09-11] MEDS: SODIUM CHLORIDE 0.9% 1,000 ML IV SCH ×3 (03:27→21:49)
[2016-09-11] MEDS: LEVOTHYROXINE 50 MCG TAB PO SCH (05:53)
[2016-09-11 07:04] LABS: Glucose,Whole Blood 129 mg/dL (75-99)
[2016-09-11] MEDS: INSULIN LISPRO (humaLOG) 300 UNIT/3 ML VIAL SQ SCH ×3 (07:35→17:13)
[2016-09-11] MEDS: LINAGLIPTIN 5 MG TABLET PO SCH (08:36)
[2016-09-11] MEDS: MULTIVITAMINS, THERA 1 EACH TAB PO SCH (08:36)
[2016-09-11] MEDS: ATORVASTATIN 20 MG TAB PO SCH (08:36)
[2016-09-11] MEDS: MONTELUKAST 10 MG TAB PO SCH (08:36)
[2016-09-11] MEDS: LOSARTAN 25 MG TAB PO SCH (08:36)
[2016-09-11] MEDS: METOPROLOL TARTRATE 50 MG TAB PO SCH ×3 (08:37→20:16)
[2016-09-11] MEDS: VERAPAMIL 40 MG TAB PO SCH ×3 (08:37→20:16)
[2016-09-11] MEDS: FENOFIBRATE 160 MG TAB PO SCH (08:37)
[2016-09-11] MEDS: ENOXAPARIN 40 MG/0.4 ML SYRINGE SQ SCH (08:37)
[2016-09-11 12:06] LABS: Glucose,Whole Blood 225 mg/dL (75-99)
[2016-09-11] MEDS ORDERED: CALCIUM CARBONATE 500 MG CHEWABLE PO PRN (14:26)
[2016-09-11 16:40] LABS: Glucose,Whole Blood 168 mg/dL (75-99)
[2016-09-11 18:37] LABS: Anion Gap 10 mmol/L; Blood Urea Nitrogen 24 mg/dL (7-17); Calcium 8.5 mg/dL (8.4-10.2); Carbon Dioxide 15 mmol/L (22-30); Chloride 109 mmol/L (98-107); Glucose 201 mg/dL (74-99); Non-African American GFR(MDRD) >60 (>60 ml/min/1.73 sqM); Potassium 5.8 mmol/L (3.5-5.1); Sodium 134 mmol/L (137-145)
[2016-09-11] MEDS ORDERED: SODIUM POLYSTYRENE SULFONATE 15 GM/60 ML BOTTLE PO STA (21:07)
[2016-09-11 21:53] LABS: Glucose,Whole Blood 177 mg/dL (75-99)
[2016-09-11] MEDS: DICYCLOMINE 10 MG CAP PO PRN (23:27)
--- NOTE | 2016-09-11 23:39 | PN ---
DATE OF SERVICE: 09/11/2016 PRESENTING COMPLAINT: Weak and tired. INTERVAL HISTORY: This is a patient who presented with quite a few things, including hyponatremia, atrial fibrillation ( ) Yesterday patient's Glucophage and Cozaar were discontinued. Patient does not have an appetite; getting edema; getting IV fluids. Lying in bed, tired-appearing. Review of systems done for constitutional, cardiovascular, GI, pulmonary; relevant findings as above. Current medications are reviewed that include IV fluids at 100 mL/hour. On examination, temperature 96.5, pulse 89, respiration 18, blood pressure 107/69, pulse ox 97% on room air. GENERAL APPEARANCE: Lying in bed, tired-appearing. EYES: Pupils equal. Conjunctivae pale. NECK: JVD not raised. Mass not palpable. RESPIRATORY: Effort normal. LUNGS: Diminished breath sounds. CARDIOVASCULAR: Heart sounds irregular. Edema is present. ABDOMEN: Soft, nontender. PSYCHIATRY: Mood and affect appear to be low, though answering questions. INVESTIGATIONS: Sodium 134, potassium 5.8. BUN 24, creatinine 0.60. ASSESSMENT: 1. Hyponatremia, normal osmolar, improved with saline infusion. 2. Fluid overload from IV fluids. 3. Persistent atrial fibrillation, rate controlled. 4. Hyperkalemia. 5. Diabetes mellitus, type 2, chronically on hypoglycemics. 6. Essential hypertension with blood pressures running on the low side. 7. Nausea; could be multifactorial. 8. Mitral valve prolapse. 9. Diabetes mellitus, type 2, causing peripheral neuropathy. 10. Hypothyroidism, chronic. 11. Troponin leak, probably hemodynamic mismatch. 12. Multiple medical debilities, multifactorial. 13. Primary osteoarthritis in multiple joints, bilateral. 14. Hyperkalemia. Patient has been on Cozaar. 15. Possible significant depression. Will get a psychiatric evaluation. PLAN: Will make sure the Cozaar is discontinued. Will give the patient Kayexalate, cut back on IV fluids. Also stop all the supplements. Care was discussed with the patient and daughter in detail. I am concerned about underlying depression. Psychiatry was consulted. Patient's overall prognosis is guarded. Will get a psychiatry evaluation.
[2016-09-12] MEDS: ACETAMINOPHEN TAB 325 MG TAB PO PRN ×3 (02:59→21:47)
[2016-09-12] MEDS: LEVOTHYROXINE 50 MCG TAB PO SCH (06:22)
[2016-09-12 07:25] LABS: Glucose,Whole Blood 195 mg/dL (75-99)
[2016-09-12] MEDS: VERAPAMIL 40 MG TAB PO SCH (08:07)
[2016-09-12] MEDS: LINAGLIPTIN 5 MG TABLET PO SCH (08:07)
[2016-09-12] MEDS: MONTELUKAST 10 MG TAB PO SCH (08:07)
[2016-09-12] MEDS: METOPROLOL TARTRATE 50 MG TAB PO SCH ×2 (08:07→20:59)
[2016-09-12] MEDS: INSULIN LISPRO (humaLOG) 300 UNIT/3 ML VIAL SQ SCH ×3 (08:08→17:30)
[2016-09-12] MEDS: MULTIVITAMINS, THERA 1 EACH TAB PO SCH (08:08)
[2016-09-12] MEDS: ENOXAPARIN 40 MG/0.4 ML SYRINGE SQ SCH (08:08)
[2016-09-12 09:02] LABS: Anion Gap 7 mmol/L; Blood Urea Nitrogen 18 mg/dL (7-17); Calcium 8.2 mg/dL (8.4-10.2); Carbon Dioxide 21 mmol/L (22-30); Chloride 104 mmol/L (98-107); Glucose 193 mg/dL (74-99); Non-African American GFR(MDRD) >60 (>60 ml/min/1.73 sqM); Sodium 132 mmol/L (137-145)
[2016-09-12 09:15] LABS: Potassium 5.3 mmol/L (3.5-5.1)
--- NOTE | 2016-09-12 10:57 | ECHOF ---
Referral Reason:view cardiac fuction MEASUREMENTS -------- HEIGHT: 160.0 cm WEIGHT: 55.8 kg BP: 127/61 RVIDd: 3.1 cm (< 3.3) IVSd: 1.0 cm (0.6 - 1.1) LVIDd: 5.0 cm (3.9 - 5.3) LVPWd: 1.1 cm (0.6 - 1.1) IVSs: 1.3 cm LVIDs: 4.3 cm LVPWs: 1.4 cm LA Diam: 4.8 cm (2.7 - 3.8) LAESV Index (A-L): 53.22 ml/m Ao Diam: 2.8 cm (2.0 - 3.7) AV Cusp: 2.1 cm (1.5 - 2.6) LA Diam: 4.7 cm (2.7 - 3.8) MV EXCURSION: 13.536 mm (> 18.000) MV EF SLOPE: 77 mm/s (70 - 150) EPSS: 1.6 cm RAP: 5.00 mmHg RVSP: 30.68 mmHg FINDINGS -------- Atrial fibrillation. This was a technically good study. There is borderline concentric left ventricular hypertrophy. There is severe global hypokinesis of LV . Overall left ventricular systolic function is severely impaired with, an EF between 20 - 25 %. The right ventricle is normal in size. LA is severely dilated >40 ml/m2 The right atrium is normal in size. Aortic valve is trileaflet and is mildly thickened. There is mild aortic regurgitation. The mitral valve leaflets are moderately thickened. Moderate mitral annular calcification present. [id number] mitral regurgitation is present. The peak and mean MV gradients are 8.95mmHg 1.56mmHg as measured by doppler. MV Repair. Moderate tricuspid regurgitation present. Trace/mild (physiologic) pulmonic regurgitation. The aortic root size is normal. The inferior vena cava is mildly dilated. The inferior vena cava is dilated with poor inspiratory collapse which is consistent with estimated right atrial pressure of 20 mmHg. There is no pericardial effusion. CONCLUSIONS -------- 1. Atrial fibrillation. 2. There is mild aortic regurgitation. 3. The mitral valve leaflets are moderately thickened. 4. Moderate mitral annular calcification present. 5. Pred-vj-[id number] mitral regurgitation is present. 6. The peak and mean MV gradients are 8.95mmHg 1.56mmHg as measured by doppler. 7. MV Repair. 8. Moderate tricuspid regurgitation present. 9. Trace/mild (physiologic) pulmonic regurgitation. 10. The aortic root size is normal. 11. The inferior vena cava is mildly dilated. 12. This was a technically good study. 13. The inferior vena cava is dilated with poor inspiratory collapse which is consistent with estimated right atrial pressure of 20 mmHg. 14. There is no pericardial effusion. 15. There is borderline concentric left ventricular hypertrophy. 16. There is severe global hypokinesis of LV . 17. Overall left ventricular systolic function is severely impaired with, an EF between 20 - 25 %. 18. The right ventricle is normal in size. 19. LA is severely dilated >40 ml/m2 20. The right atrium is normal in size. 21. Aortic valve is trileaflet and is mildly thickened. [employer]: Yanira Aguilera RDCS
[2016-09-12 12:29] LABS: Glucose,Whole Blood 219 mg/dL (75-99)
[2016-09-12] MEDS: FUROSEMIDE 20 MG TAB PO SCH (12:52)
--- NOTE | 2016-09-12 13:27 | PN ---
This patient was admitted with generalized weakness. Patient was hyponatremic, which is improved. The patient otherwise still feels weak, has mild respiratory difficulty too. Patient's heart rate now is 80 to 100 per minute. First and second heart sounds are normal. Lungs are fairly clear to auscultation and percussion. Jugular venous pressure is probably mildly elevated and there is a 1 to 2+ pedal edema. Echocardiogram shows evidence of severely impaired left ventricular systolic functions. Patient's sodium is now 132. In view of this patient's severely impaired left ventricular systolic function, I will discontinue the verapamil and I will continue the patient on Lopressor 50 mg b.i.d. We will try her on a small dose of Zestril 2.5 mg daily and Lasix 20 mg daily. Check the BNP level.
--- NOTE | 2016-09-12 14:45 | P.CN ---
Psychiatric Consult - . Consult date: 09/12/16 Consult:: Mrs. Boucher is a 86-year-old female admitted as medicine service on 09/09/2016 with dry heaving, decreased appetite, weight loss and increasing fatigue. Psychiatry consulted because patient expressed feelings depression and helplessness. I reviewed the medical record, interviewed the patient and spoke with her daughter and . She stated that she's been feeling hopeless and helpless because she is no longer able to "do the things I used to." She talked about feeling chronically fatigued and being unable to eat without choking. She admitted to several symptoms consistent with depression in the elderly including : Dissatisfaction with life, decreasing activities and interests, feelings of emptiness, feeling "bad", unhappiness, helplessness, lack of energy and hopelessness. She has thoughts of but denied suicidal ideation, intent or plan. She denied a history of depression or depressive episodes and denied that she has received mental health treatment in past. She denied that her family physician had prescribed her antidepressant medication for "nerves" or "stress". Her daughter confirmed that she has become progressively more withdrawn, physically weak and physically impaired. She has multiple medical problems including hypertension, mitral valve prolapse and diabetes mellitus type 2. The progress by Dr. Briceño today described evidence of severely impaired left ventricular systolic function. She presented as a pale elderly woman who was pleasant on approach. When I arrived her daughter was feeding her lunch and she had difficulty swallowing. She had difficulty attending to the interview and that she fell asleep frequently. She appeared fatigue and short of breath. She was awake when I called her name and was able to concentrate on the interview briefly. She had a distressed facial expression. She showed marked psychomotor retardation but no abnormal movements. Her speech was not spontaneous with decreased rate, rhythm and volume. Her affect was dysphoric. She described wishes but denied suicidal ideation. She expressed depressive cognitions including hopelessness, helplessness and worthlessness. She did not express ideas reference or paranoid ideation. Her thinking was concrete but her associations were coherent. She does not appear to be responding to internal stimuli. [facility] O[facility] Memory and Concentration test. Her total weighted error score was 6; a total weighted error score greater than 10 is consistent with dementia. She knew the year but thought the month was "April ". She estimated that time accurately within 1 hour of the actual time. She was able to repeat the memory phrase "Dk Gloria, [address] [facility].". She was able to count backwards from 20 and name the months of the year in reverse order (beginning with June). She remembered 1 out of the 5 elements of the above memory phrase after the distraction exercises. Impression: She has severe medical problems including probable heart failure that is most likely the cause of her fatigue and listlessness. She has many symptoms of depression and feelings of hopelessness that are related to her failing health and loss ability to care of herself and family. I'm reluctant to diagnose a depressive disorder given the severity of her medical illness. There is no current evidence for severe cognitive impairment and/or dementia. Recommendation: If her feelings of depression, fatigue, listlessness and other symptoms depression persist after her cardiac function improves then she may benefit from an antidepressant. I would not recommend active psychiatric treatment at this time due to the severity of her medical condition. Thank you for this consult. 09/12/16 14:23
[2016-09-12 17:13] LABS: Glucose,Whole Blood 216 mg/dL (75-99)
[2016-09-12] MEDS: SODIUM CHLORIDE 0.9% 1,000 ML IV SCH (17:31)
[2016-09-12 20:16] LABS: Amylase 51 U/L (30-110)
[2016-09-12 21:00] LABS: Glucose,Whole Blood 176 mg/dL (75-99)
[2016-09-12] MEDS: APIXABAN 2.5 MG TABLET PO SCH (21:00)
[2016-09-12] MEDS: CALCIUM CARBONATE LIQUID 500 MG/5 ML CUP PO SCH (22:18)
[2016-09-12] MEDS: PANTOPRAZOLE 40 MG TABLET PO SCH (22:18)
[2016-09-13] MEDS: DICYCLOMINE 10 MG CAP PO PRN (02:42)
[2016-09-13] MEDS: LEVOTHYROXINE 50 MCG TAB PO SCH (06:23)
[2016-09-13 07:05] LABS: Glucose,Whole Blood 180 mg/dL (75-99)
--- NOTE | 2016-09-13 08:09 | PN ---
DATE OF SERVICE: 09/12/2016 PRESENTING COMPLAINT: Weak and tired. INTERVAL HISTORY: This patient presented with multiple problems including hyponatremia, which is improved, atrial fibrillation. Ejection fraction has come back to be 20% to 25%. Patient is barely eating, sitting up in a chair. and daughter are at bedside. Patient is still having epigastric pain. Patient was put on Bentyl yesterday, not much help. Review of systems done for constitutional, cardiovascular, GI, pulmonary; relevant findings as above. Current medications are reviewed that include decreased fluid at 50 mL/h. On examination, temperature 97.4, pulse 101, respiration 18, blood pressure 113/74, pulse ox 98% on room air. GENERAL APPEARANCE: Sitting up in a chair, tired-appearing. EYES: Pupils equal. Conjunctivae pale. NECK: JVD not raised. Mass not palpable. RESPIRATORY: Effort increased. LUNGS: Decreased breath sounds. CARDIOVASCULAR: Heart sounds irregular. Edema present. ABDOMEN: Soft, minimal epigastric tenderness. PSYCHIATRIC: Alert and oriented x3. Mood and affect, low appearing. INVESTIGATIONS: Potassium 5.3, BUN 18, creatinine 0.52. Accu-Cheks are noted. Amylase and lipase are normal. ASSESSMENT: 1. Hyponatremia, normal osmolar, improved with saline infusion. 2. Fluid overload from IV fluids, improved. 3. Persistent atrial fibrillation, rate controlled. 4. Hyperkalemia, improving. 5. Diabetes mellitus type 2, chronically hypoglycemic. 6. Essential hypertension, blood pressure is running on rather low side. 7. Nausea, multifactorial. 8. Mitral valve prolapse. 9. Diabetes mellitus, type 2, causing peripheral neuropathy. 10. Hypothyroidism, chronic. 11. Troponin leak from hemodynamic mismatch. 12. Multiple medical problems causing medical debility. 13. Primary osteoarthritis of multiple joints, bilateral. 14. Hyperkalemia. Patient has been taken off Cozaar also. 15. 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 16. Per Psychiatry, not a good candidate for antidepressants. 17. Epigastric pain, could be gastritis given that patient is on Eliquis. PLAN: I had a very lengthy talk with the patient's daughter. Her overall prognosis remains guarded. Will start the patient on Protonix 40 mg twice a day, TUMS. Consult GI. Overall condition was yet again discussed. I did also mention that if patient did not respond significantly, then hospice may not be a bad option. Will see how the patient does in the next 24 to 48 hours and go from there. In the meantime, GI consult is being made.
[2016-09-13] MEDS: LINAGLIPTIN 5 MG TABLET PO SCH (09:06)
[2016-09-13] MEDS: LISINOPRIL 2.5 MG TAB PO SCH (09:06)
[2016-09-13] MEDS: CALCIUM CARBONATE LIQUID 500 MG/5 ML CUP PO SCH ×3 (09:06→17:34)
[2016-09-13] MEDS: FUROSEMIDE 20 MG TAB PO SCH (09:06)
[2016-09-13] MEDS: MONTELUKAST 10 MG TAB PO SCH (09:07)
[2016-09-13] MEDS: APIXABAN 2.5 MG TABLET PO SCH ×2 (09:07→21:35)
[2016-09-13] MEDS: METOPROLOL TARTRATE 50 MG TAB PO SCH ×2 (09:07→21:35)
[2016-09-13] MEDS: PANTOPRAZOLE 40 MG TABLET PO SCH ×2 (09:07→17:34)
[2016-09-13] MEDS: INSULIN LISPRO (humaLOG) 300 UNIT/3 ML VIAL SQ SCH ×3 (09:08→17:34)
--- NOTE | 2016-09-13 10:51 | P.CONS ---
History of Present Illness - Reason for Consult Consult date: 09/13/16 epigastric pain Requesting physician: Jose Briceño - History of Present Illness 86-year-old female admitted with hyponatremia, fluid overload from IV fluids, persistent A. fib, and epigastric discomfort. She is a past medical history of acalculus cholecystectomy, diabetes mellitus II, breast carcinoma, mitral valve repair, CAD, CVA, hyperlipidemia, hypertension, hypothyroidism, osteoarthritis, depression, and persistent atrial fibrillation with Eliquis maintenance. Consultation requested for epigastric pain. Patient has been experiencing for several months epigastric discomfort with intermittent nausea vomiting. Pain seems to be in the upper abdominal region. No episodes of hematemesis, hematochezia, or melena. Daughter is at bedside and assisting with history taking. Patient was started on Protonix and provided Bentyl last night with good response she ate her breakfast this morning. Denies odynophagia or dysphagia. Hemoglobin 11.7. White count 10.1. Liver enzymes unremarkable. No history of peptic ulcer disease or EGD. Colonoscopy in the past with hemorrhoidectomy several years ago. Review of Systems Daughter assisting with history taking. Constitutional: Denies fever, chills, sweats, weight gain, or loss. HEENT: Negative for migraines, blurred vision or loss, earaches, drainage, tinnitus, oral mucosal lesions, dysphagia, or odynophagia. CARDIAC: Mitral valve repair. Chronic atrial fibrillation. CAD. Hypertension. MVP. Hyperlipidemia. RESPIRATORY: Negative for shortness of breath, hemoptysis, cough, or sputum production. GI: See HPI for pertinent findings. : Negative for hematuria, urgency, frequency, polyuria, or dysuria. GYNc: Breast carcinoma. Denies possibility of . Negative vaginal discharge. MUSCULOSKELETAL: Osteoarthritis. NEUROLOGIC: CVA.. ENDOCRINE: Diabetes mellitus. Hypothyroidism. SKIN: Negative for rash or itching. 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 Past Anesthesia/Blood Transfusion Reactions: No Reported Reaction Past Psychological History: No Psychological Hx Reported Smoking Status: Former smoker Past Alcohol Use History: None Reported Additional Past Alcohol Use History / Comment(s): Pt states she started smoking in 1949 and quit in 1961. She ws a light smoker-2 packs a week. Past Drug Use History: None Reported - Past Family History Father History Unknown: Yes Mother History Unknown: Yes Medications and Allergies Home Medications Medication Instructions Recorded Confirmed Type Aspirin 81 mg PO DAILY 08/13/16 09/09/16 History Atorvastatin Calcium [Lipitor] 20 mg PO DAILY 08/13/16 09/09/16 History Calcium Carbonate [Calcium] 600 mg PO BID 08/13/16 09/09/16 History Fenofibrate 160 mg PO DAILY 08/13/16 09/09/16 History Gabapentin [Neurontin] 200 mg PO BID 08/13/16 09/09/16 History Montelukast [Singulair] 10 mg PO DAILY 08/13/16 09/09/16 History Multivitamins, Thera [Multivitamin] 1 tab PO DAILY 08/13/16 09/09/16 History Ubidecarenone [Co Q-10] 100 mg PO DAILY 08/13/16 09/09/16 History Allergies Allergy/AdvReac Type Severity Reaction Status Date / Time tetracycline Allergy Rapid Verified 09/09/16 17:23 Heart Rate Physical Exam Vitals: Vital Signs Temp Pulse Resp BP Pulse Ox 09/13/16 07:00 99.2 F 124 H 16 115/80 97 09/12/16 23:00 98.1 F 109 H 19 113/75 100 09/12/16 15:00 97.4 F L 101 H 18 131/74 98 Intake and Output 09/12/16 09/13/16 09/13/16 22:59 06:59 14:59 Other: # Voids 1 3 General appearance: The patient is alert, oriented, in no acute distress. HET: Head is normocephalic and atraumatic. Pupils are equal and reactive. Oropharynx is clear without lesions. Neck: Supple without lymphadenopathy. Trachea midline. Heart: S1 S2. Regular rate and rhythm. Lungs: No crackles or wheezes are heard. Abdomen: Soft, very mild tenderness to the upper abdomen and epigastrium region , nondistended with bowel sounds. No peritoneal signs. No palpable organomegaly or masses. Extremities: Normal skin color and turgor. No cyanosis, rash, ulceration, clubbing, or edema. Radial and pedal pulses are 2/4 bilaterally. Neurological: No focal deficits. Strength and sensation are grossly intact. Results CBC & Chem 7: 09/09/16 17:45 09/12/16 08:21 Labs: Abnormal Lab Results - Last 24 Hours (Table) 09/12/16 09/12/16 09/12/16 Range/Units 12:27 17:11 20:47 POC Glucose (mg/dL) 219 H 216 H 176 H (75-99) mg/dL 09/13/16 Range/Units 07:03 POC Glucose (mg/dL) 180 H (75-99) mg/dL Microbiology - Last 24 Hours (Table) 09/09/16 20:27 Urine Culture - Final Urine,Voided Escherichia coli Assessment and Plan (1) Epigastric pain Narrative/Plan: 86-year-old female with multiple medical problems with reports of chronic epigastric discomfort with intermittent nausea and occasional emesis possible gastritis possible esophagitis however underlying peptic ulcer disease cannot be entirely excluded. Status: Acute (2) Hyponatremia Status: Acute (3) Chronic a-fib Status: Acute (4) Diabetes Status: Acute (5) Elevated troponin Status: Acute Plan: Recommendations: 1. Considering patient's symptoms are improving with Protonix and Bentyl continue with those medications and observe. EGD is not planned at this time but contingent on clinical course. This was discussed with daughter and she is agreeable with plan of care. We'll continue to monitor closely. Diet as tolerated with protein shakes 3 times daily as needed. Thank you for this kind referral and the opportunity to participate in the care of your patient. This consultation was discussed with Dr. Silva. The impression and plan of care have been directed as dictated.
[2016-09-13] MEDS: DICYCLOMINE 10 MG CAP PO SCH ×4 (11:55→22:22)
[2016-09-13 12:19] LABS: Glucose,Whole Blood 241 mg/dL (75-99)
[2016-09-13] MEDS: SODIUM CHLORIDE 0.9% 1,000 ML IV SCH (13:26)
--- NOTE | 2016-09-13 17:04 | PN ---
This patient is seen for the cardiac evaluation. The patient was admitted with generalized weakness. Her condition remains about the same. She is slightly feeling better, but continues to feel weak. Denies any significant shortness of breath, orthopnea, or PND. Patient's echocardiogram reveals a severely impaired left ventricular systolic functions. Blood pressure now is 115/80 mmHg. The patient has heart rate now 100 to 120 per minute. First and second heart sounds are normal. Lungs are fairly clear to auscultation and percussion. PLAN: I will add Lanoxin 0.125 mg daily to control the rate. Continue Lopressor 50 mg b.i.d. Patient is on Zestril 5 mg daily and Lasix 20 mg daily. We will let check the BMP tomorrow.
[2016-09-13 17:29] LABS: Glucose,Whole Blood 212 mg/dL (75-99)
[2016-09-13] MEDS: DIGOXIN 125 MCG TAB PO SCH (17:35)
[2016-09-13 21:00] LABS: Glucose,Whole Blood 265 mg/dL (75-99)
--- NOTE | 2016-09-13 22:17 | PN ---
DATE OF SERVICE: 09/13/2016 PRESENTING COMPLAINT: Weak and tired. INTERVAL HISTORY: This patient with multiple issues presented with hyponatremia, which was corrected, atrial fibrillation. Rates are running a bit on the high side. EF is 20% to 25%. Patient still feels very weak and tired with very minimal oral intake. Because of epigastric pain, Protonix and Tums were added. Patient has edema; getting fluids at 50 mL/hour. Review of systems done for constitutional, cardiovascular, GI, pulmonary; relevant findings as above. Current medications are reviewed that include IV fluids. On examination, temperature 96.9, pulse 107, respiration 18, blood pressure 129/69, pulse ox 100% on room air. GENERAL APPEARANCE: Lying in bed. Very tired-appearing. EYES: Pupils equal. Conjunctivae pale. NECK: JVD raised. Mass not palpable. RESPIRATORY: Effort increased. LUNGS: Decreased breath sounds. No crackles. CARDIOVASCULAR: Heart sounds irregular. Significant edema present. ABDOMEN: Soft, nontender. Liver and spleen not palpable. PSYCHIATRY: Alert and oriented x3. Mood and affect low. INVESTIGATIONS: No blood work from today. Accu-Cheks are noted. ASSESSMENT: 1. Hyponatremia, normal osmolar, improved with saline infusion. 2. Acute on chronic congestive heart failure exacerbation from systolic dysfunction; ejection fraction 20% to 25%; from IV fluids. 3. Persistent atrial fibrillation, rate somewhat uncontrolled. 4. Hyperkalemia. 5. Diabetes mellitus, type 2, chronically on hypoglycemics. 6. Essential hypertension. Blood pressure in fact running on the lower side. 7. Nausea, multifactorial. 8. Mitral valve prolapse. 9. Diabetes mellitus, type 2, causing peripheral neuropathy. 10. Hypothyroidism, chronic. 11. Troponin leak from hemodynamic mismatch. 12. Multiple medical problems causing medical debility. 13. Primary osteoarthritis of multiple joints, bilateral. 14. 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 Patient felt not to be a good candidate for antidepressants per Psychiatry. 15. Probable gastritis. Patient is on Eliquis. PLAN: At this point will give patient IV Lasix 20 mg x2. Stop the IV fluids. Recheck BMP in the morning. Prognosis is guarded. No family at the bedside.
[2016-09-13] MEDS: FUROSEMIDE 10 MG/ML 2 ML VIAL IV SCH (22:21)
[2016-09-14] MEDS: LEVOTHYROXINE 50 MCG TAB PO SCH (06:15)
[2016-09-14 07:41] LABS: Glucose,Whole Blood 112 mg/dL (75-99)
[2016-09-14] MEDS: INSULIN LISPRO (humaLOG) 300 UNIT/3 ML VIAL SQ SCH ×3 (08:07→18:12)
[2016-09-14] MEDS: LISINOPRIL 2.5 MG TAB PO SCH (08:40)
[2016-09-14] MEDS: CALCIUM CARBONATE LIQUID 500 MG/5 ML CUP PO SCH ×3 (08:40→17:44)
[2016-09-14] MEDS: DIGOXIN 125 MCG TAB PO SCH (08:40)
[2016-09-14] MEDS: LINAGLIPTIN 5 MG TABLET PO SCH (08:40)
[2016-09-14] MEDS: DICYCLOMINE 10 MG CAP PO SCH ×4 (08:40→20:50)
[2016-09-14] MEDS: METOPROLOL TARTRATE 50 MG TAB PO SCH (08:40)
[2016-09-14] MEDS: MONTELUKAST 10 MG TAB PO SCH (08:40)
[2016-09-14] MEDS: FUROSEMIDE 10 MG/ML 2 ML VIAL IV SCH ×3 (08:41→22:29)
[2016-09-14] MEDS: PANTOPRAZOLE 40 MG TABLET PO SCH ×2 (08:41→17:21)
[2016-09-14] MEDS: APIXABAN 2.5 MG TABLET PO SCH ×2 (08:41→20:50)
--- NOTE | 2016-09-14 10:07 | P.PN ---
Subjective Principal diagnosis: Epigastric pain nausea 86-year-old female reevaluated in regards to abdominal pain nausea vomiting. Patient feels much better with adjustment of medications yesterday. She is tolerating more of her diet today. Heart rate is increased cardiology has been consulted. Afebrile. Presently denies abdominal pain nausea vomiting. Objective - Vital Signs Vital signs: Vital Signs Temp 96.0 F L 09/14/16 07:00 Pulse 122 H 09/14/16 07:00 Resp 20 09/14/16 07:00 BP 137/72 09/14/16 07:00 Pulse Ox 98 09/14/16 07:00 Intake & Output 09/13/16 09/14/16 09/14/16 18:59 06:59 18:59 Intake Total 440 0 Balance 440 0 Weight 56.019 kg Intake: Intake, IV Titration 0 0 Amount Sodium Chloride 0.9% 1, 0 0 000 ml @ 50 mls/hr IV . Q20H BARBARA Rx#:[id number] Oral 440 Other: # Voids 5 # Bowel Movements 0 - Exam General appearance: The patient is alert, oriented, in no acute distress. HET: Head is normocephalic and atraumatic. Pupils are equal and reactive. Oropharynx is clear without lesions. Neck: Supple without lymphadenopathy. Trachea midline. Heart: S1 S2. Lungs: No crackles or wheezes are heard. Abdomen: Soft, nontender, nondistended with bowel sounds. No peritoneal signs. No palpable organomegaly or masses. Extremities: Normal skin color and turgor. No cyanosis, rash, ulceration, clubbing, or edema. Radial and pedal pulses are 2/4 bilaterally. Neurological: No focal deficits. Strength and sensation are grossly intact. - Labs CBC & Chem 7: 09/09/16 17:45 09/12/16 08:21 Labs: Abnormal Lab Results - Last 24 Hours (Table) 09/13/16 09/13/16 09/13/16 Range/Units 12:13 17:11 20:59 POC Glucose (mg/dL) 241 H 212 H 265 H (75-99) mg/dL 09/14/16 Range/Units 07:19 POC Glucose (mg/dL) 112 H (75-99) mg/dL Assessment and Plan (1) Epigastric pain Narrative/Plan: 86-year-old female with multiple medical problems with reports of chronic epigastric discomfort with intermittent nausea and occasional emesis possible gastritis possible esophagitis however underlying peptic ulcer disease cannot be entirely excluded. Status: Acute (2) Hyponatremia Status: Acute (3) Chronic a-fib Status: Acute (4) Diabetes Status: Acute (5) Elevated troponin Status: Acute Plan: Recommendations: 1. Continue with symptomatic care. Upper endoscopy not planned at this time. We'll follow as needed. Assessment and plan of care discussed with Dr. Espinoza.
[2016-09-14 10:13] LABS: Anion Gap 8 mmol/L; Blood Urea Nitrogen 16 mg/dL (7-17); Calcium 8.2 mg/dL (8.4-10.2); Carbon Dioxide 27 mmol/L (22-30); Chloride 97 mmol/L (98-107); Glucose 176 mg/dL (74-99); Non-African American GFR(MDRD) >60 (>60 ml/min/1.73 sqM); Potassium 3.5 mmol/L (3.5-5.1); Sodium 132 mmol/L (137-145)
[2016-09-14 12:47] LABS: Glucose,Whole Blood 224 mg/dL (75-99)
--- NOTE | 2016-09-14 15:37 | PN ---
This patient was admitted with generalized weakness. Patient has cardiomyopathy with severely impaired left ventricular systolic function. Patient continues to be in atrial fibrillation with intermittent rapid ventricular response. Patient is feeling slightly better. Heart rate is 90 to 110 per minute. First and second heart sounds are normal. Lungs are fairly clear to auscultation and percussion. Blood pressure is 137/72 mmHg. We will increase the dose of Lopressor to 75 mg b.i.d. to control the rate and continue the rest of the medications.
[2016-09-14] MEDS ORDERED: FUROSEMIDE 10 MG/ML 2 ML VIAL IV SCH (17:00)
[2016-09-14 17:14] LABS: Glucose,Whole Blood 173 mg/dL (75-99)
--- NOTE | 2016-09-14 18:04 | PN ---
DATE OF SERVICE: 09/14/2016 PRESENTING COMPLAINT: Weak and tired. INTERVAL HISTORY: This patient with multiple medical problems presented with hypernatremia, which is corrected, atrial fibrillation, ( ). The patient also has CHF. The patient did diurese well. Patient is more propped up today and actually ate a little bit. Abdominal pain is much better after adding Protonix and Tums. Daughter and her are at the bedside. Still has some edema. Review of systems done for constitutional, cardiovascular, GI, pulmonary; relevant findings as above. Current medications are reviewed. On examination, temperature 96.9, pulse 89, respiration 18, blood pressure 113/69, pulse ox 99% on room air. GENERAL APPEARANCE: Lying in bed propped up, but awake, smiling. EYES: Pupils equal. Conjunctivae pale. NECK: JVD raised. Mass not palpable. RESPIRATORY: Effort increased. LUNGS: Decreased breath sounds. CARDIOVASCULAR: Heart sounds irregular. Edema present. ABDOMEN: Soft, nontender. Liver and spleen not palpable. PSYCHIATRY: Alert and oriented x3. Mood and affect actually improved. INVESTIGATIONS: Potassium 3.5. Accu-Cheks are noted. ASSESSMENT: 1. Hyponatremia, normal osmolar, improved with saline infusion. 2. Acute on chronic congestive heart failure exacerbation from systolic dysfunction; ejection fraction 20% to 25% decompensated. 3. Persistent atrial fibrillation, rate somewhat uncontrolled. 4. Hyperkalemia, improved. 5. Diabetes mellitus type 2, chronically on hypoglycemic. 6. Essential hypertension. 7. Nausea, multifactorial. 8. Mitral valve prolapse. 9. 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 10. Hypothyroidism, chronic. 11. Troponin leak from hemodynamic mismatch. 12. Multiple medical problems causing medical debility. 13. Primary osteoarthritis in multiple joints, bilateral. 14. Major depression from multiple medical problems. Patient not felt to be a good candidate for antidepressant per Psychiatry. 15. Probably gastritis from patient being on Eliquis, painful, improved with the current medication PLAN: Will give her 2 small doses of IV Lasix 20 mg now and 20 in the morning. Care was discussed at length with the patient's daughter and . Prognosis overall is guarded, but patient looks better. Oral intake is actually somewhat better. Repeat labs in the morning. Patient's will Lopressor dose will also be increased. If blood pressure goes down, will hold off MIAH inhibitor. Time spent today was about 40 minutes with over 25 minutes of discussion.
[2016-09-14] MEDS: METOPROLOL TARTRATE 25 MG TAB PO SCH (20:54)
[2016-09-14 22:02] LABS: Glucose,Whole Blood 155 mg/dL (75-99)
[2016-09-15] MEDS: LEVOTHYROXINE 50 MCG TAB PO SCH (06:20)
[2016-09-15 07:31] LABS: Glucose,Whole Blood 166 mg/dL (75-99)
[2016-09-15] MEDS: PANTOPRAZOLE 40 MG TABLET PO SCH ×2 (08:26→17:29)
[2016-09-15] MEDS: CALCIUM CARBONATE LIQUID 500 MG/5 ML CUP PO SCH ×3 (08:26→17:29)
[2016-09-15] MEDS: DICYCLOMINE 10 MG CAP PO SCH ×4 (08:26→20:59)
[2016-09-15] MEDS: MONTELUKAST 10 MG TAB PO SCH (08:29)
[2016-09-15] MEDS: APIXABAN 2.5 MG TABLET PO SCH ×2 (08:29→20:24)
[2016-09-15] MEDS: DIGOXIN 125 MCG TAB PO SCH (08:29)
[2016-09-15] MEDS: METOPROLOL TARTRATE 25 MG TAB PO SCH ×2 (08:29→20:24)
[2016-09-15] MEDS: LINAGLIPTIN 5 MG TABLET PO SCH (08:29)
[2016-09-15] MEDS: FUROSEMIDE 20 MG TAB PO SCH (08:29)
[2016-09-15] MEDS: INSULIN LISPRO (humaLOG) 300 UNIT/3 ML VIAL SQ SCH ×3 (08:30→17:45)
[2016-09-15] MEDS: LISINOPRIL 2.5 MG TAB PO SCH (08:31)
[2016-09-15 09:22] LABS: Anion Gap 9 mmol/L; Blood Urea Nitrogen 20 mg/dL (7-17); Calcium 8.3 mg/dL (8.4-10.2); Carbon Dioxide 31 mmol/L (22-30); Chloride 95 mmol/L (98-107); Glucose 158 mg/dL (74-99); Non-African American GFR(MDRD) >60 (>60 ml/min/1.73 sqM); Potassium 3.3 mmol/L (3.5-5.1); Sodium 135 mmol/L (137-145)
[2016-09-15] MEDS ORDERED: POTASSIUM CHLORIDE ER 20 MEQ TAB.ER PO STA (12:04)
[2016-09-15] MEDS ORDERED: FUROSEMIDE 10 MG/ML 2 ML VIAL IV ONE (12:04)
[2016-09-15 12:16] LABS: Glucose,Whole Blood 267 mg/dL (75-99)
[2016-09-15 17:06] LABS: Glucose,Whole Blood 144 mg/dL (75-99)
[2016-09-15] MEDS ORDERED: ONDANSETRON 4 MG/2 ML VIAL IVP PRN (17:32)
[2016-09-15] MEDS ORDERED: ONDANSETRON 4 MG/2 ML VIAL ONE (17:33)
[2016-09-15] MEDS ORDERED: NITROGLYCERIN SL TABS 0.4 MG TAB SUBLINGUAL ONE (17:34)
[2016-09-15] MEDS ORDERED: NITROGLYCERIN SL TABS 0.4 MG TAB SUBLINGUAL PRN (17:36)
[2016-09-15 18:22] LABS: Troponin I 0.053 ng/mL (0.000-0.034)
[2016-09-15] MEDS: SPIRONOLACTONE 25 MG TAB PO SCH (18:34)
--- NOTE | 2016-09-15 18:48 | PN ---
DATE OF SERVICE: 09/15/2016 PRESENTING COMPLAINT: Tired. INTERVAL HISTORY: This patient with multiple medical problems initially presented with hypernatremia that got corrected, atrial fibrillation and also CHF. Patient continues to do better. Sitting up in a chair, actually ate better. She actually did walk a bit more. Abdominal pain is completely gone. Swelling of the leg is present, but gone down. Review of systems done for constitutional, cardiovascular, GI, pulmonary; relevant findings as above. Current medications are reviewed that include Lopressor 75 twice a day. On examination, temperature 98.7, pulse 101, respirations 16, blood pressure 130/72, pulse ox 99% on room air. GENERAL APPEARANCE: Sitting a chair, awake, smiling. EYES: Pupils equal. NECK: JVD raised. RESPIRATORY: Effort increased. LUNGS: Decreased breath sounds. CARDIOVASCULAR: Heart sounds irregular. Edema present. ABDOMEN: Soft, nontender. PSYCHIATRY: Alert and oriented x3. Mood and affect normal. INVESTIGATIONS: Potassium 3.3, BUN 20, creatinine 0.69. Accu-Cheks are noted. ASSESSMENT: 1. Hypernatremia normal osmolar, improved with saline infusion, present on admission. 2. Acute on chronic congestive heart failure exacerbation from systolic dysfunction. Ejection fraction 20 to 25% decompensated, slowly improving. 3. Persistent atrial fibrillation, rate somewhat better controlled. 4. Hyperkalemia, improved. 5. Diabetes mellitus type 2, chronically on hypoglycemic. 6. Essential hypertension. 7. Mitral valve prolapse. 8. Diabetes mellitus, type 2, causing peripheral neuropathy. 9. Hypothyroidism, chronic. 10. Troponin leak from hemodynamic mismatch. 11. Multiple medical problems causing medical debility. 12. Primary osteoarthritis in multiple joints bilaterally. 13. Major depression from multiple problems, not felt to be a candidate for antidepressants per Psychiatry. 14. Gastritis from patient being on Eliquis, improving. PLAN: Continue current medication and treatment plan. Patient's overall prognosis remains guarded. This patient was seen by me earlier this morning. ADVANCED CARE PLANNING: Later I was called as patient became nauseated, bit tired, rundown, A-Team had to be called. The patient had some chest pain and then she stabilized. I spoke to the daughter at length about patient's overall prognosis, which she understands and it would not be a very good idea to resuscitate somebody with her condition and age and prognosis is guarded. She understands and we decided to proceed with DO NOT RESUSCITATE CODE STATUS. This was an additional 20 to 25 minutes in addition to the progress note earlier in the day.
[2016-09-15 20:14] LABS: Glucose,Whole Blood 233 mg/dL (75-99)
[2016-09-16] MEDS: LEVOTHYROXINE 50 MCG TAB PO SCH (06:10)
[2016-09-16 06:51] LABS: Glucose,Whole Blood 202 mg/dL (75-99)
[2016-09-16] MEDS: CALCIUM CARBONATE LIQUID 500 MG/5 ML CUP PO SCH ×3 (08:06→18:19)
[2016-09-16] MEDS: INSULIN LISPRO (humaLOG) 300 UNIT/3 ML VIAL SQ SCH ×3 (08:07→18:20)
[2016-09-16] MEDS: PANTOPRAZOLE 40 MG TABLET PO SCH (08:07)
[2016-09-16] MEDS: DICYCLOMINE 10 MG CAP PO SCH (08:07)
[2016-09-16] MEDS: LINAGLIPTIN 5 MG TABLET PO SCH (09:43)
[2016-09-16] MEDS: FUROSEMIDE 20 MG TAB PO SCH (09:43)
[2016-09-16] MEDS: DIGOXIN 125 MCG TAB PO SCH (09:43)
[2016-09-16] MEDS: APIXABAN 2.5 MG TABLET PO SCH (09:43)
[2016-09-16] MEDS: METOPROLOL TARTRATE 25 MG TAB PO SCH ×2 (09:43→22:37)
[2016-09-16] MEDS: MONTELUKAST 10 MG TAB PO SCH (09:43)
[2016-09-16] MEDS: LISINOPRIL 2.5 MG TAB PO SCH (09:43)
[2016-09-16 10:58] LABS: Anisocytosis Slight; Basophils % (A) 0 %; CH 31.3; CHCM 31.7; Eosinophils % (A) 1 %; HCT 25.7 % (34.0-46.0); HDW 3.16; Hypochromasia Slight; Luc # (Auto) 0.17; Luc % (Auto) 3; Lymphocytes # (A) 1.1 k/uL (1.0-4.8); Lymphocytes % (A) 17 %; MCH 31.8 pg (25.0-35.0); MCHC 31.9 g/dL (31.0-37.0); Macrocytosis Slight; Mean Platelet Volume 8.3; Monocytes # (A) 0.5 k/uL (0-1.0); Monocytes % (A) 7 %; Neutrophils # (A) 4.8 k/uL (1.3-7.7); Neutrophils % (A) 73 %; RBC 2.58 m/uL (3.80-5.40); RDW 17.6 % (11.5-15.5); WBC 6.6 k/uL (3.8-10.6); WBC (Perox) 7.04
[2016-09-16 11:04] LABS: HGB 8.2 gm/dL (11.4-16.0); MCV 99.7 fL (80.0-100.0)
[2016-09-16 11:27] LABS: Anisocytosis Slight; Basophils % (A) 0 %; CH 31.2; CHCM 31.6; Eosinophils % (A) 1 %; HCT 21.6 % (34.0-46.0); HDW 3.16; Hypochromasia Moderate; INR 1.2 (<1.1); Luc # (Auto) 0.18; Luc % (Auto) 3; Lymphocytes # (A) 0.8 k/uL (1.0-4.8); Lymphocytes % (A) 13 %; Macrocytosis Slight; Mean Platelet Volume 7.6; Monocytes # (A) 0.5 k/uL (0-1.0); Monocytes % (A) 7 %; Neutrophils # (A) 5.1 k/uL (1.3-7.7); Neutrophils % (A) 77 %; Prothrombin Time 12.3 sec (9.0-12.0); RBC 2.16 m/uL (3.80-5.40); RDW 17.5 % (11.5-15.5); WBC 6.6 k/uL (3.8-10.6); WBC (Perox) 6.68
[2016-09-16 11:31] LABS: HGB 6.7 gm/dL (11.4-16.0)
[2016-09-16 11:32] LABS: Glucose,Whole Blood 253 mg/dL (75-99)
[2016-09-16 11:34] LABS: Anion Gap 8 mmol/L; Blood Urea Nitrogen 37 mg/dL (7-17); Calcium 8.1 mg/dL (8.4-10.2); Carbon Dioxide 28 mmol/L (22-30); Chloride 96 mmol/L (98-107); Glucose 227 mg/dL (74-99); Non-African American GFR(MDRD) >60 (>60 ml/min/1.73 sqM); Potassium 3.9 mmol/L (3.5-5.1); Sodium 132 mmol/L (137-145)
[2016-09-16] MEDS: SPIRONOLACTONE 25 MG TAB PO SCH (14:42)
[2016-09-16 15:09] LABS: Glucose,Whole Blood 194 mg/dL (75-99)
[2016-09-16 18:00] LABS: Glucose,Whole Blood 142 mg/dL (75-99)
[2016-09-16 20:44] LABS: Glucose,Whole Blood 143 mg/dL (75-99)
[2016-09-16] MEDS: PANTOPRAZOLE 40 MG/10 ML VIAL IVP SCH (22:38)
[2016-09-17 00:06] LABS: Anisocytosis Slight; Basophils % (A) 0 %; CHCM 33.8; Eosinophils # (A) 0.1 k/uL (0-0.7); Eosinophils % (A) 2 %; HCT 30.2 % (34.0-46.0); HDW 3.44; Luc # (Auto) 0.28; Luc % (Auto) 4; Lymphocytes # (A) 1.8 k/uL (1.0-4.8); Lymphocytes % (A) 25 %; MCH 30.5 pg (25.0-35.0); MCHC 32.9 g/dL (31.0-37.0); Mean Platelet Volume 7.4; Monocytes # (A) 0.5 k/uL (0-1.0); Monocytes % (A) 7 %; Neutrophils # (A) 4.5 k/uL (1.3-7.7); Neutrophils % (A) 62 %; Poikilocytosis Slight; RBC 3.25 m/uL (3.80-5.40); RDW 17.2 % (11.5-15.5); WBC 7.3 k/uL (3.8-10.6)
[2016-09-17 00:11] LABS: HGB 9.9 gm/dL (11.4-16.0); MCV 92.8 fL (80.0-100.0)
[2016-09-17 00:57] LABS: Manual Review Performed
[2016-09-17 06:13] LABS: Anisocytosis Slight; Basophils % (A) 0 %; CH 31.2; CHCM 34.5; Eosinophils # (A) 0.2 k/uL (0-0.7); Eosinophils % (A) 2 %; HCT 31.5 % (34.0-46.0); HDW 3.65; HGB 10.4 gm/dL (11.4-16.0); Luc % (Auto) 4; Lymphocytes # (A) 1.6 k/uL (1.0-4.8); Lymphocytes % (A) 19 %; MCH 30.3 pg (25.0-35.0); MCHC 33.1 g/dL (31.0-37.0); MCV 91.7 fL (80.0-100.0); Mean Platelet Volume 7.6; Monocytes # (A) 0.6 k/uL (0-1.0); Monocytes % (A) 7 %; Neutrophils # (A) 6.1 k/uL (1.3-7.7); Neutrophils % (A) 69 %; Poikilocytosis Slight; RBC 3.43 m/uL (3.80-5.40); RDW 17.5 % (11.5-15.5); WBC 8.7 k/uL (3.8-10.6); WBC (Perox) 9.25
[2016-09-17 06:31] LABS: Glucose,Whole Blood 150 mg/dL (75-99)
[2016-09-17 06:36] LABS: Anion Gap 4 mmol/L; Blood Urea Nitrogen 34 mg/dL (7-17); Calcium 8.4 mg/dL (8.4-10.2); Carbon Dioxide 31 mmol/L (22-30); Chloride 96 mmol/L (98-107); Glucose 139 mg/dL (74-99); Magnesium 1.6 mg/dL (1.6-2.3); Non-African American GFR(MDRD) >60 (>60 ml/min/1.73 sqM); Sodium 131 mmol/L (137-145)
[2016-09-17] MEDS: LEVOTHYROXINE 50 MCG TAB PO SCH (06:36)
[2016-09-17] MEDS: CALCIUM CARBONATE LIQUID 500 MG/5 ML CUP PO SCH ×3 (06:36→18:18)
[2016-09-17] MEDS: INSULIN LISPRO (humaLOG) 300 UNIT/3 ML VIAL SQ SCH ×3 (06:38→18:18)
--- NOTE | 2016-09-17 08:13 | PN ---
DATE OF SERVICE: 09/16/2016 PRESENTING COMPLAINT: Dark stools. INTERVAL HISTORY: This patient initially presented with hypernatremia that corrected with ( ) also ( ) atrial fibrillation rate better controlled and CHF exacerbation. The patient started to do better, but this morning patient had a dark stool and did drop hemoglobin. Feeling tired again. and daughter is at the bedside. Review of systems done for constitutional, cardiovascular, GI, pulmonary; relevant findings as above. Current medications include Eliquis. On examination, temperature 96.1, pulse 83, respiratory rate 20, blood pressure 131/73, pulse ox 100% on room air. GENERAL APPEARANCE: Propped in bed, tired -appearing. EYES: Pupils equal. Conjunctivae pale. NECK: JVD not raised. RESPIRATORY: Effort increased. LUNGS: Decreased breath sounds. CARDIOVASCULAR: Heart sounds irregular. Decreased edema. ABDOMEN: Soft, nontender. PSYCHIATRY: Tired -appearing, answers simple questions. INVESTIGATIONS: White count 6.6, hemoglobin 6.7, potassium 3.9, sodium 132, BUN 37, creatinine 0.69. Accu-Cheks noted. ASSESSMENT: 1. Acute gastrointestinal bleed, likely from patient being on Eliquis. 2. Hyponatremia ( ) had improved. 3. Acute on chronic congestive failure exacerbation from systolic dysfunction; ejection fraction 20% to 25% decompensated earlier. now better. 4. Persistent atrial fibrillation, rate better controlled. 5. Hyperkalemia, improved. 6. Diabetes mellitus type 2, chronically on oral hypoglycemics. 7. Essential hypertension. 8. Mitral valve prolapse. 9. Diabetes mellitus type 2, causing peripheral neuropathy. 10. Hypothyroidism, chronic. 11. Troponin leak from hemodynamic mismatch. 12. ( ) causing medical debility. 13. Primary osteoarthritis in multiple joints, bilaterally. 14. Major depression, ( ) not felt to be a candidate for antidepressant per psychiatry. 15. Acute gastrointestinal bleed from patient being on the Eliquis. 16. Acute blood loss anemia, symptomatic. PLAN: Patient will be given a unit of blood. We will discontinue the patient's Eliquis. Again guarded prognosis discussed with the patient's at the bedside. Questions were answered. Repeat a CBC in the morning. We will stop patient's Bentyl.
[2016-09-17] MEDS: LINAGLIPTIN 5 MG TABLET PO SCH (10:04)
[2016-09-17] MEDS: MAGNESIUM SULFATE-D5W PMX 1 GM in DEXTROSE/WATER 1 100ML.BAG IVPB SCH ×3 (10:21→14:50)
[2016-09-17] MEDS ORDERED: LACTATED RINGERS 1,000 ML IV ONE (11:01)
[2016-09-17] MEDS ORDERED: LIDOCAINE 1% INJ 10MG/ML (20 ML MDV) ONE (11:29)
[2016-09-17] MEDS ORDERED: PROPOFOL 10 MG/ML 20 ML VIAL IV ONE (11:29)
[2016-09-17] MEDS ORDERED: EPINEPHrine 10 ML SYRINGE (0.1 MG/ML) MISCELLANE ONE (11:50)
--- NOTE | 2016-09-17 12:05 | P.PCN ---
Date of Procedure: 09/17/16 Procedure(s) Performed: BRIEF HISTORY: Patient is a 86-year-old, pleasant, white female admitted hospital with epigastric pain and hyponatremia. While in the hospital she had significant amount of maroon-colored stool yesterday and became somewhat hypotensive and was transferred to the intensive care unit. She dropped her hemoglobin from 11-6.5 requiring 2 units of PRBC transfusion. She did not have any further episodes of bleeding through the night and her last hemoglobin was 10.5 g/dL.. PROCEDURE PERFORMED: Esophagogastroduodenoscopy with injection epinephrine and resolution clip placement. PREOPERATIVE DIAGNOSIS: Acute upper GI bleed. IV sedation per anesthesia. PROCEDURE: After informed consent was obtained, the patient was brought into the endoscopy unit. IV conscious sedation was administered by Anesthesia under continuous monitoring. Initially the Olympus GIF-140 video endoscope was inserted into the mouth. Esophagus intubated without any difficulty. It was gradually advanced into the stomach and duodenum and carefully examined. There was large amount of fresh blood noted in the bulb and second part of the duodenum. Thorough irrigation was performed. There was a large duodenal ulcer noted along the duodenal sweep which was deep and measured approximately 3 cm and had active bleeding. Initially 1 in 10,000 epinephrine was injected with 10 mL and there was still bleeding noted. At this time another 8 mL was injected under good hemostasis was achieved. I was able to see the ulcer base clearly and there was oozing noted at the middle part of the ulcer. I proceeded with resolution clip placement and total of 3 clips were placed and good hemostasis was achieved at this point. The scope at this time was withdrawn to the stomach, adequately insufflated with air, and upon careful examination, mucosa of the antrum, body, cardia and the fundus appeared normal. The scope was then withdrawn into the esophagus. Small hiatal hernia noted. The GE junction was located at 39 cm from the incisors. The esophagus appeared normal. There were no erosions or ulcerations seen and the patient tolerated the procedure well. IMPRESSION: 1. Large duodenal bulbar ulcer along the duodenal sweep with active bleeding, status post injection epinephrine and resolution clip placement with good hemostasis. 2. Hiatal. RECOMMENDATIONS: The findings of this examination were discussed with the patient as well as a family. At this time she will be continued on IV Protonix 40 mg every 12 hours and obtain serial CBCs and transfuse as needed. Will obtain surgical consultation.
[2016-09-17] MEDS ORDERED: METOPROLOL TARTRATE 5 MG/5 ML VIAL IVP ONE (12:38)
[2016-09-17] MEDS: LISINOPRIL 2.5 MG TAB PO SCH (14:21)
[2016-09-17] MEDS: METOPROLOL TARTRATE 25 MG TAB PO SCH ×2 (14:22→20:38)
[2016-09-17] MEDS: PANTOPRAZOLE 40 MG/10 ML VIAL IVP SCH ×2 (14:22→20:39)
[2016-09-17] MEDS: MONTELUKAST 10 MG TAB PO SCH (14:22)
[2016-09-17] MEDS: DIGOXIN 125 MCG TAB PO SCH (14:22)
[2016-09-17] MEDS: FUROSEMIDE 20 MG TAB PO SCH (14:22)
[2016-09-17] MEDS: ACETAMINOPHEN TAB 325 MG TAB PO PRN ×2 (14:24→22:42)
[2016-09-17] MEDS: SPIRONOLACTONE 25 MG TAB PO SCH (14:24)
[2016-09-17 14:28] LABS: Glucose,Whole Blood 197 mg/dL (75-99)
[2016-09-17 16:58] LABS: Glucose,Whole Blood 226 mg/dL (75-99)
[2016-09-17 17:12] VITALS: TEMP 96.7
[2016-09-17 19:03] LABS: Anisocytosis Slight; Basophils % (A) 0 %; CH 31.4; CHCM 33.2; Eosinophils % (A) 0 %; HCT 23.3 % (34.0-46.0); HDW 3.55; Hypochromasia Slight; Luc # (Auto) 0.17; Luc % (Auto) 2; Lymphocytes # (A) 1.2 k/uL (1.0-4.8); Lymphocytes % (A) 12 %; MCHC 32.4 g/dL (31.0-37.0); MCV 95.7 fL (80.0-100.0); Macrocytosis Slight; Mean Platelet Volume 8.2; Monocytes # (A) 0.5 k/uL (0-1.0); Monocytes % (A) 5 %; Neutrophils # (A) 7.6 k/uL (1.3-7.7); Neutrophils % (A) 80 %; Poikilocytosis Slight; RBC 2.44 m/uL (3.80-5.40); RDW 18.4 % (11.5-15.5); WBC 9.5 k/uL (3.8-10.6); WBC (Perox) 9.44
[2016-09-17 19:16] LABS: HGB 7.6 gm/dL (11.4-16.0)
--- NOTE | 2016-09-17 19:20 | P.GSCN ---
History of Present Illness Consult date: 09/17/16 Reason for Consult: Upper GI bleed History of present illness: Patient presented with tirednes,epigastric pain, and known history of Afib. She has had DM type 2 , strokes, and MVP with neuropathy. She is currently s/p after an EGD and clipping for a large duodenal ulcer. She remians very tired and rundown. Review of Systems - Constitutional Reports daytime sleepiness, Reports fatigue, Reports malaise, Reports poor appetite - EENT Ears: deny: decreased hearing Ears, nose, mouth and throat: Denies dysphagia, Denies epistaxis, Denies headache - Cardiovascular Reports dyspnea on exertion - Respiratory Denies congestion, Denies cough - Gastrointestinal Reports abdominal pain, Reports bloating, Reports loss of appetite, Reports nausea Past Medical History Past Medical History: Atrial Fibrillation, Coronary Artery Disease (CAD), Cancer , Chest Pain / Angina, Diabetes Mellitus, Hyperlipidemia, Hypertension, Mitral Valve Prolapse (MVP), Thyroid Disorder Additional Past Medical History / Comment(s): L breast cancer with surgery-no radiation or chemo, NIDDM type II, bilateral legs/feet neuropathy, hypothyroid, 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 Past Anesthesia/Blood Transfusion Reactions: No Reported Reaction Past Psychological History: No Psychological Hx Reported Smoking Status: Former smoker Past Alcohol Use History: None Reported Additional Past Alcohol Use History / Comment(s): Pt states she started smoking in 1949 and quit in 1961. She ws a light smoker-2 packs a week. Past Drug Use History: None Reported - Past Family History Father History Unknown: Yes Mother History Unknown: Yes Medications and Allergies Home Medications Medication Instructions Recorded Confirmed Type Aspirin 81 mg PO DAILY 08/13/16 09/09/16 History Atorvastatin Calcium [Lipitor] 20 mg PO DAILY 08/13/16 09/09/16 History Calcium Carbonate [Calcium] 600 mg PO BID 08/13/16 09/09/16 History Fenofibrate 160 mg PO DAILY 08/13/16 09/09/16 History Gabapentin [Neurontin] 200 mg PO BID 08/13/16 09/09/16 History Montelukast [Singulair] 10 mg PO DAILY 08/13/16 09/09/16 History Multivitamins, Thera [Multivitamin] 1 tab PO DAILY 08/13/16 09/09/16 History Ubidecarenone [Co Q-10] 100 mg PO DAILY 08/13/16 09/09/16 History Allergies Allergy/AdvReac Type Severity Reaction Status Date / Time tetracycline Allergy Rapid Verified 09/09/16 17:23 Heart Rate Surgical - Exam Vital Signs Temp Pulse Resp BP Pulse Ox 98.4 F 64 18 130/72 98 09/09/16 17:04 09/09/16 17:04 09/09/16 17:04 09/09/16 17:04 09/09/16 17:04 - General moderate distress - Eyes pale - ENT normal pinna - Neck trachea midline, no venous distension, no deviated trachea - Respiratory normal expansion - Cardiovascular Rhythm: irregularly irregular - Abdomen Abdomen: soft, non tender - Integumentary no rash Results - Labs 09/17/16 05:46 09/17/16 05:46 Abnormal Lab Results - Last 24 Hours (Table) 09/16/16 09/16/16 09/16/16 Range/Units 12:54 20:43 23:22 RBC 3.25 L (3.80-5.40) m/uL Hgb 9.9 L D (11.4-16.0) gm/dL Hct 30.2 L (34.0-46.0) % RDW 17.2 H (11.5-15.5) % Sodium (137-145) mmol/L Chloride (98-107) mmol/L Carbon Dioxide (22-30) mmol/L BUN (7-17) mg/dL Glucose (74-99) mg/dL POC Glucose (mg/dL) 143 H (75-99) mg/dL Crossmatch See Detail 09/17/16 09/17/16 09/17/16 Range/Units 05:46 05:46 06:21 RBC 3.43 L (3.80-5.40) m/uL Hgb 10.4 L (11.4-16.0) gm/dL Hct 31.5 L (34.0-46.0) % RDW 17.5 H (11.5-15.5) % Sodium 131 L (137-145) mmol/L Chloride 96 L (98-107) mmol/L Carbon Dioxide 31 H (22-30) mmol/L BUN 34 H (7-17) mg/dL Glucose 139 H (74-99) mg/dL POC Glucose (mg/dL) 150 H (75-99) mg/dL Crossmatch 09/17/16 09/17/16 Range/Units 14:07 16:57 RBC (3.80-5.40) m/uL Hgb (11.4-16.0) gm/dL Hct (34.0-46.0) % RDW (11.5-15.5) % Sodium (137-145) mmol/L Chloride (98-107) mmol/L Carbon Dioxide (22-30) mmol/L BUN (7-17) mg/dL Glucose (74-99) mg/dL POC Glucose (mg/dL) 197 H 226 H (75-99) mg/dL Crossmatch Diabetes panel 09/17/16 Range/Units 05:46 Sodium 131 L (137-145) mmol/L Potassium 4.0 (3.5-5.1) mmol/L Chloride 96 L (98-107) mmol/L Carbon Dioxide 31 H (22-30) mmol/L BUN 34 H (7-17) mg/dL Creatinine 0.66 (0.52-1.04) mg/dL Glucose 139 H (74-99) mg/dL Calcium 8.4 (8.4-10.2) mg/dL Calcium panel 09/17/16 Range/Units 05:46 Calcium 8.4 (8.4-10.2) mg/dL Pituitary panel 09/17/16 Range/Units 05:46 Sodium 131 L (137-145) mmol/L Potassium 4.0 (3.5-5.1) mmol/L Chloride 96 L (98-107) mmol/L Carbon Dioxide 31 H (22-30) mmol/L BUN 34 H (7-17) mg/dL Creatinine 0.66 (0.52-1.04) mg/dL Glucose 139 H (74-99) mg/dL Calcium 8.4 (8.4-10.2) mg/dL Adrenal panel 09/17/16 Range/Units 05:46 Sodium 131 L (137-145) mmol/L Potassium 4.0 (3.5-5.1) mmol/L Chloride 96 L (98-107) mmol/L Carbon Dioxide 31 H (22-30) mmol/L BUN 34 H (7-17) mg/dL Creatinine 0.66 (0.52-1.04) mg/dL Glucose 139 H (74-99) mg/dL Calcium 8.4 (8.4-10.2) mg/dL Assessment and Plan (1) Cardiac failure Status: Acute (2) Duodenal ulcer hemorrhage Status: Acute Plan: Patient is a very frail 86 y old female with a duodenal ulcer bleed that has been clipped. There is a high chance of rebleed. She is overall very dcompensated, DNR status, with an EF of 20 %. I have explained to the patient and the family that she is a very high risk patient for rebleed and she is a very high risk surgical candidate with the possibility of mortality from the bleed or the surgery alike are high. There is an option of intervetional radiology that has good success rate but her overall status makes her chance of morbidity or mortality very high. The patients family understands the risks of any intervention. They have not decided whether they want to be transferred to a [facility] for that intervetnional radiology or not. She has a high morbidity and mortality in any case. There is a chance she will not bleed any further as well I will check the CBC now. And will wait for their final decision. If she needs to be transferred she would preferably go to [facility] to the internal medicine service with intervnetional radiology and GI on consult for bleeding control. Will follow with you. Thank you for the consult
[2016-09-17] MEDS ORDERED: SODIUM CHLORIDE 0.9% 500 ML IV ONE (20:18)
[2016-09-17 20:56] VITALS: RESP 18
[2016-09-17 21:01] LABS: Glucose,Whole Blood 186 mg/dL (75-99)
[2016-09-17 22:21] VITALS: BP 93/49; PULSE 71
--- NOTE | 2016-09-18 10:33 | DS ---
DATE OF ADMISSION: 09/09/2016 DATE OF DISCHARGE: 09/17/2016 FINAL DIAGNOSES: 1. Acute on chronic congestive heart failure exacerbation from systolic dysfunction; ejection fraction 20% to 25%, present on admission. 2. Persistent atrial fibrillation. 3. Hyperkalemia, improved. 4. Diabetes mellitus type 2, chronically on oral hypoglycemic. 5. Essential hypertension. 6. Mitral valve prolapse. 7. 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 8. Hypothyroidism, chronic. 9. Troponin leak from hemodynamic mismatch. 10. Primary osteoarthritis in multiple joints, bilaterally. 11. Major depression, recurrent, not felt to be a candidate for psychiatry. 12. Acute gastrointestinal bleed from a large bleeding, duodenal ulcer from patient being on Eliquis. 13. Acute severe blood loss anemia requiring multiple blood transfusions a total of 3 at least. HOSPITAL COURSE: This is a very pleasant lady with a and daughter who flew in from [place], involved in the care, had multiple issues including CHF, atrial fibrillation, high sodium when she had come in. Subsequently, patient then had a large GI bleed, taken to the endoscopy by Dr. Cayla Espinoza. ( ) and clipping was done. Patient continued to drop her hemoglobin. Patient was transfused blood and patient's and daughter decided to transfer the patient to [facility] for possible embolization. They do understand patient's overall prognosis is guarded but they do want to take the small change to see if it might benefit the patient. CONSULTATION: 1. Dr. Cayla Espinoza from GI. 2. Dr. Mcduffie from General Surgery. 3. Dr. Tabatha Wyman from Cardiology. 4. Dr. Holland from Psychiatry. Patient's medications. Current medications aspirin has been held. Lipitor 20 mg a day. Calcium 600 mg b.i.d., ( ) 160 mg daily, Neurontin 200 mg b.i.d., Singulair 10 mg daily, multivitamin 1 tablet p.o. daily, CoQ10 one hundred mg daily, Eliquis 2.4 p.o. b.i.d. that was discontinued, Synthroid 50 mcg a day, Cozaar 25 mg p.o. daily. Lopressor 75 mg b.i.d., metformin 250 mg p.o. b.i.d., Isoptin 120 mg t.i.d. Patient's family doctor is Dr. Kidd. Patient's last hemoglobin is 7.6. DISPOSITION: [facility]. CONDITION: Prognosis guarded. Patient's CODE STATUS is DNR.
--- NOTE | 2016-09-18 10:43 | PN ---
DATE OF SERVICE: 09/17/2016 PRESENTING COMPLAINT: Bleeding. INTERVAL HISTORY: This patient was seen by me yesterday evening on 09/17/2016. Patient initially presented with hypernatremia that was corrected and also had atrial fibrillation, CHF exacerbation. The evening before, patient was moved to the ICU, then this patient had a further bleed. Dr. Cayla Espinoza called me from the OR that she had found a large duodenal ulcer that was bleeding and she had to give ( ) and clips. Patient did bleed quite a bit. I did tell her overall patient's prognosis was guarded. I told her to go in ahead and right away consult [facility], Dr. Mcduffie was consulted. At the time I did speak to Dr. Mcduffie over the phone. The patient's and daughter when I saw the patient in the evening were present. The patient is feeling rather weak, tired, exhausted, rather pale. The patient was getting a bolus of IV fluids, more blood had been ordered. Systolic is down. Review of systems attempted for constitutional, cardiovascular, GI, pulmonary; relevant finding as above. Current medications are reviewed. On examination, temperature 96.7, pulse 74, respiration 18, blood pressure 90/58, pulse ox 100% on 2 L. GENERAL APPEARANCE: Lying in bed, very tired-appearing, pale. EYES: Pupils equal, conjunctivae are pale. NECK: JVD unable to assess. Mass not palpable. Respiratory effort normal. LUNGS: Decreased breath sounds. CARDIOVASCULAR: Heart sounds irregular. Minimal edema. ABDOMEN: Soft, no tenderness. Liver and spleen not palpable. PSYCHIATRY: Very exhausted appearing, but able simple questions. Said hello to me. INVESTIGATIONS: White count 9.5, hemoglobin previous evening had dropped down to 6.7. Patient received blood, it had got up to 9.9 then 10.4 early in the morning. Later dropped down again to 7.6. ASSESSMENT: 1. Acute severe gastrointestinal bleed with hemodynamic instability from blood loss from duodenal ulcer, secondary to Eliquis. 2. Hyponatremia, present at admission, improved. 3. Acute on chronic congestive heart failure exacerbation from systolic dysfunction; ejection fraction 20% to 25% decompensated earlier in the week, currently stable. 4. Persistent atrial fibrillation. 5. Hyperkalemia, improved. 6. Diabetes mellitus type 2, chronically on oral hypoglycemic. 7. Essential hypertension, history of. 8. Mitral valve prolapse. 9. Diabetes mellitus type 2, causing peripheral neuropathy. 10. Hypothyroidism, chronic. 11. Troponin leak from hemodynamic mismatch. 12. Primary osteoarthritis of multiple joints, bilaterally. 13. Major depression. Patient not felt to be a candidate for antidepressants per Psychiatry. 14. Acute gastrointestinal bleed from above. 15. Acute severe blood loss anemia, symptomatic. PLAN: Told the nurse to give her fluid bolus and blood has been requested. When the blood arrived, told the blood to be given fast. Had a long discussion with the patient's daughter going over pro's and con's. Dr. Mcduffie did talk to them about embolization so they are considering the patient to be transferred to [facility]. Meantime, will stabilize the patient with more blood transfusion. Questions were answered. Patient's overall prognosis still remains guarded. Total time spent in critical care management was 45 minutes.
== END 2016-09-17 23:02 | disposition short-term general hospital (02) | DRG 981 ==
LOC: EC 16:42 → 4MS4W 18:46 → 6ICU 09-16 14:55 → 6SEL 09-17 02:23 → 4MS4W 09-17 11:11 → 6SEL 09-17 11:43
PROVIDERS: ADMIT Hospitalist; ATTEND Hospitalist
PROC: 30233N1 Transfusion of Nonautologous Red Blood Cells into Peripheral Vein, Percutaneous Approach (ICD-10-PCS; 2016-09-16)
PROC: 0W3P8ZZ Control Bleeding in Gastrointestinal Tract, Via Natural or Artificial Opening Endoscopic (ICD-10-PCS; 2016-09-17)
PROC: 0DQ98ZZ Repair Duodenum, Via Natural or Artificial Opening Endoscopic (ICD-10-PCS; principal; 2016-09-17 08:45)
PROC: 3E0G8GC Introduction of Other Therapeutic Substance into Upper GI, Via Natural or Artificial Opening Endoscopic (ICD-10-PCS; 2016-09-17 08:45)
DX: E87.1 Hypo-osmolality and hyponatremia (principal); K26.4 Chronic or unspecified duodenal ulcer with hemorrhage; I50.23 Acute on chronic systolic (congestive) heart failure; I95.9 Hypotension, unspecified; I42.9 Cardiomyopathy, unspecified; E11.42 Type 2 diabetes mellitus with diabetic polyneuropathy; E11.65 Type 2 diabetes mellitus with hyperglycemia; D62 Acute posthemorrhagic anemia; I48.1 Persistent atrial fibrillation; F33.9 Major depressive disorder, recurrent, unspecified; I11.0 Hypertensive heart disease with heart failure; I48.2 Chronic atrial fibrillation; E86.0 Dehydration; T45.515A Adverse effect of anticoagulants, initial encounter; I34.1 Nonrheumatic mitral (valve) prolapse; E87.5 Hyperkalemia; Z66 Do not resuscitate; K44.9 Diaphragmatic hernia without obstruction or gangrene; E78.5 Hyperlipidemia, unspecified; I25.10 Atherosclerotic heart disease of native coronary artery without angina pectoris; R53.1 Weakness; R74.8 Abnormal levels of other serum enzymes; M19.91 Primary osteoarthritis, unspecified site; R63.4 Abnormal weight loss; H91.90 Unspecified hearing loss, unspecified ear; E03.9 Hypothyroidism, unspecified; Z79.82 Long term (current) use of aspirin; Z86.73 Personal history of transient ischemic attack (TIA), and cerebral infarction without residual deficits; Z88.1 Allergy status to other antibiotic agents; Z95.2 Presence of prosthetic heart valve; Z85.3 Personal history of malignant neoplasm of breast; Z79.01 Long term (current) use of anticoagulants; Z79.84 Long term (current) use of oral hypoglycemic drugs; Z79.899 Other long term (current) drug therapy; Z87.891 Personal history of nicotine dependence; Z90.710 Acquired absence of both cervix and uterus; Z90.49 Acquired absence of other specified parts of digestive tract; Z90.12 Acquired absence of left breast and nipple
CPT/HCPCS: 36415; 43243; 43255; 71020; 80048; 80053; 81001; 82009; 82150; 82272; 82550; 82553; 83036; 83690; 83735; 83880; 83930; 83935; 84100; 84300; 84484; 84540; 85025; 85610; 85730; 86850; 86900; 86901; 86920; 87077; 87086; 87186; 93005; 93306; 96360; 96361; 99285